=== PATIENT | male | born 1975 ===

== ENCOUNTER 2017-01-27 15:30 | Emergency (ER) | payer MEDICAID ==
[2017-01-27 15:41] VITALS: BMI 25.8
--- NOTE | 2017-01-27 16:20 | ED PDOC ---
Arrival/HPI - General Historian: Patient, Spouse <Rick Chong - Last Filed: 01/27/17 17:56> <Quinton Lambert - Last Filed: 01/28/17 10:27> - General Chief Complaint: Seizure Time Seen by Provider: 01/27/17 15:32 - History of Present Illness Narrative History of Present Illness (Text): 01/27/17 16:13 This is a 41 year old transgendered male with PMHx seizure disorder, bipolar disorder, schizoaffective disorder, gender identity disorder, BPH, asthma who comes in after a seizure episode. Seizure took place in [facility] and witnessed by a nurse who stated that the patient hit his head against the wall. Patient denies recollection of event. Patient is complaining of headache and dizziness. Patient's at bedside stated that the patient has been stressed and experiencing poor sleep as of Tuesday of last week. This was after finding out that the was . Patient denies other acute complaints. PMHx: seizure disorder, bipolar disorder, schizoaffective disorder, gender identity disorder, BPH, asthma PSHx: Appendectomy Allergies: NKDA Social: Denies tobacco, alcohol, drugs. PMD: Dr. Meng Neurologist: Not currently following one at the moment, but last [place] with [place]. [place] [facility]. (Rick Chong) Past Medical History - Provider Review Nursing Documentation Reviewed: Yes - Infectious Disease Hx of Infectious Diseases: None - Tetanus Immunization Tetanus Immunization: Unknown - Reproductive Currently : No Currently Lactating: No - Cardiac Hx Cardiac Disorders: Yes Hx Hypertension: Yes - Pulmonary Hx Respiratory Disorders: Yes Hx Asthma: Yes - Neurological Hx Neurological Disorder: Yes Hx Migraine: Yes Hx Seizures: Yes - HEENT Hx HEENT Disorder: No - Renal Hx Renal Disorder: No - Endocrine/Metabolic Hx Endocrine Disorders: No - Hematological/Oncological Hx Blood Disorders: No - Integumentary Hx Dermatological Disorder: No - Musculoskeletal/Rheumatological Hx Musculoskeletal Disorders: Yes Hx Falls: Yes - Gastrointestinal Hx Gastrointestinal Disorders: No - Genitourinary/Gynecological Hx Genitourinary Disorders: Yes Hx Prostate Problems: Yes Other/Comment: BPH. - Psychiatric Hx Psychophysiologic Disorder: Yes (MULTIDRUG OD,INSOMNIA,BIPOLAR AFFECTIVE D/O, GENDER ID.DISORDER.) Hx Substance Use: No - Past Surgical History Past Surgical History: No Previous - Surgical History Hx Appendectomy: Yes Other/Comment: hernia - Anesthesia Hx Anesthesia: Yes Hx Anesthesia Reactions: No Hx Malignant Hyperthermia: No - Suicidal Assessment Feels Threatened In Home Enviroment: No <Rick Chong - Last Filed: 01/27/17 17:56> Family/Social History - Physician Review Nursing Documentation Reviewed: Yes Family/Social History: Unknown Family HX Smoking Status: Never Smoked Hx Alcohol Use: No Hx Substance Use: No Hx Substance Use Treatment: No <Rick Chong - Last Filed: 01/27/17 17:56> Allergies/Home Meds <Rick Chong - Last Filed: 01/27/17 17:56> <Quinton Lambert - Last Filed: 01/28/17 10:27> Allergies/Adverse Reactions: Allergies No Known Allergies Allergy (Verified 01/27/17 15:44) Home Medications: Home Meds Medication Instructions Recorded Confirmed Albuterol HFA [Ventolin HFA 90 1 puff IH PRN PRN 12/25/15 01/27/17 mcg/actuation (8 g)] Atorvastatin [Lipitor] 40 mg PO DAILY 12/25/15 01/27/17 Lamotrigine [Lamictal] 200 mg PO DAILY 12/25/15 01/27/17 Simvastatin [Zocor] 40 mg PO DAILY 12/25/15 01/27/17 Zolpidem 10 mg PO HS 12/25/15 01/27/17 Alprazolam [Xanax] 0.5 mg PO DAILY 01/27/17 01/27/17 Aspirin [Ecotrin] 81 mg PO DAILY 01/27/17 01/27/17 Benztropine [Cogentin] 0.5 mg PO BID 01/27/17 01/27/17 Lurasidone HCl [Latuda] 80 mg PO DAILY 01/27/17 01/27/17 Risperidone [Risperdal] 1 mg PO HS 01/27/17 01/27/17 clonazePAM [Klonopin] 1 mg PO PRN PRN 01/27/17 01/27/17 hydrOXYzine Pamoate [Vistaril] 50 mg PO TID 01/27/17 01/27/17 Review of Systems - Review of Systems Constitutional: Normal Eyes: Normal ENT: Normal Respiratory: Normal Cardiovascular: Normal Gastrointestinal: Normal Genitourinary Male: Normal Musculoskeletal: Normal Skin: Normal Neurological: Headache, Dizziness Endocrine: Normal Hemo/Lymphatic: Normal Psychiatric: Normal <Rick Chong - Last Filed: 01/27/17 17:56> - Review of Systems Respiratory: absent: SOB Cardiovascular: absent: Chest Pain <Quinton Lambert - Last Filed: 01/28/17 10:27> Physical Exam Vital Signs Reviewed: Yes Temperature: Afebrile Blood Pressure: Normal Pulse: Regular Respiratory Rate: Normal Appearance: Positive for: Comfortable Pain Distress: None Mental Status: Positive for: Alert and Oriented X 3 - Systems Exam Head: Present: Normocephalic Pupils: Present: PERRL Extroacular Muscles: Present: EOMI Conjunctiva: Present: Normal Mouth: Present: Moist Mucous Membranes Neck: Present: Normal Range of Motion Respiratory/Chest: Present: Clear to Auscultation, Good Air Exchange. No: Accessory Muscle Use Cardiovascular: Present: Regular Rate and Rhythm, Normal S1, S2 Abdomen: Present: Normal Bowel Sounds. No: Tenderness, Distention Upper Extremity: Present: Normal Inspection, NORMAL PULSES. No: Edema Lower Extremity: Present: Normal Inspection, NORMAL PULSES. No: Edema, CALF TENDERNESS Neurological: Present: GCS=15, CN II-XII Intact, Motor Func Grossly Intact, Normal Sensory Function, Other (Abnormal finger to nose test. No pronator drift. Down-going plantar responses.) Skin: Present: Warm, Dry, Normal Color Psychiatric: Present: Alert, Oriented x 3. No: Normal Affect (Flat affect) <Rick Chong - Last Filed: 01/27/17 17:56> Medical Decision Making <Rick Chong - Last Filed: 01/27/17 17:56> <Quinton Lambert - Last Filed: 01/28/17 10:27> ED Course and Treatment: 01/27/17 16:25 EKG, CBC, CMP, Coags, UA, UDS, Head CT w.o. contrast, serum alcohol level EKG showed NSR with a prolonged QTc of [address] unremarkable Fioricet given for headache. Patient stable for discharge home. (Rick Chong) 01/27/17 In agreement with resident note, which includes further HPI details. Patient was seen and evaluated with resident, came up with plan and treatment together. pt with known seizure d/o. no seizure activity in er. labs head ct unremarkable. mild leukocytisis. cxr, urine neg. pt neuro intac.t stable for outpt management. 01/28/17 10:27 (Quinton Lambert) - Lab Interpretations Lab Results: 01/27/17 16:05 01/27/17 16:05 Lab Results 01/27/17 16:31: Urine Opiates Screen Negative, Urine Methadone Screen Negative, Ur Barbiturates Screen Positive H, Ur Phencyclidine Scrn Negative, Ur Amphetamines Screen Negative, U Benzodiazepines Scrn Negative, U Oth Cocaine Metabols Negative, U Cannabinoids Screen Positive H 01/27/17 16:31: Urine Color Yellow, Urine Appearance Sl cloudy, Urine pH 6.0, Ur Specific [place] >= 1.030, Urine Protein 30 H, Urine Glucose (UA) Negative, Urine Ketones 40 H, Urine Blood Trace-intact H, Urine Nitrate Negative, Urine Bilirubin Negative, Urine Urobilinogen 0.2, Ur Leukocyte Esterase Negative, Urine RBC 0 - 2, Urine WBC 0 - 2, Ur Epithelial Cells 1 - 3, Urine Other Mucus 01/27/17 16:05: PT 11.8, INR 1.09 H, APTT 24.0 01/27/17 16:05: Alcohol, Quantitative < 10 01/27/17 16:05: Sodium 137, Potassium 4.2, Chloride 98, Carbon Dioxide 25, Anion Gap 18, BUN 6 L, Creatinine 0.6, Est GFR ( Amer) > 60, Est GFR (Non -Af Amer) > 60, Random Glucose 105, Calcium 9.8, Total Bilirubin 0.7, AST 30, ALT 22, Alkaline Phosphatase 66, Total Protein 8.0, Albumin 4.9 H, Globulin 3.1 , Albumin/Globulin Ratio 1.6 01/27/17 16:05: WBC 12.2 H, RBC 4.44, Hgb 12.9 L, Hct 37.4 L, MCV 84.2, MCH 29.1 , MCHC 34.5, RDW 14.0, Plt Count 262, MPV 9.6, Gran % 85.7 H, Lymph % (Auto) 8.0 L, [place] % (Auto) 6.0, Eos % (Auto) 0.2 L, Baso % (Auto) 0.1, Gran # 10.49 H , Lymph # 1.0 L, [place] # 0.7 H, Eos # 0.0, Baso # 0.01 - RAD Interpretation Radiology Orders: 01/27/17 HEAD W/O CONTRAST [CT] Stat 01/27/17 16:42 CXR [CHEST PORTABLE] [RAD] Stat - Medication Orders Current Medication Orders: Discontinued Medications Acetaminophen/Butalbital/Caffeine (Fioricet) 1 tab PO STAT STA Stop: 01/27/17 17:50 Last Admin: 01/27/17 17:59 Dose: 1 tab <Rick Chong - Last Filed: 01/27/17 17:56> - PA / UTILIZATION REVIEW SPECIALIST / Resident Statement MD/ has reviewed & agrees with the documentation as recorded. MD/ has examined the patient and agrees with the treatment plan. - Scribe Statement The provider has reviewed the documentation as recorded by the Scribe <Quinton Lambert - Last Filed: 01/28/17 10:27> - Scribe Statement 01/27/2017 Sonia Desai Provider Scribe Attestation: All medical record entries made by the Scribe were at my direction and personally dictated by me. I have reviewed the chart and agree that the record accurately reflects my personal performance of the history, physical exam, medical decision making, and the department course for this patient. I have also personally directed, reviewed, and agree with the discharge instructions and disposition. (Quinton Lambert) Disposition/Present on Arrival - Present on Arrival Any Indicators Present on Arrival: No History of DVT/PE: No History of Uncontrolled Diabetes: No Urinary Catheter: No History of Decub. Ulcer: No History Surgical Site Infection Following: None - Disposition Have Diagnosis and Disposition been Completed?: Yes Disposition Time: 17:45 Patient Plan: Discharge <Rick Chong - Last Filed: 01/27/17 17:56> <Quinton Lambert - Last Filed: 01/28/17 10:27> - Disposition Diagnosis: Seizures Disposition: HOME/ ROUTINE Condition: STABLE Discharge Instructions (ExitCare): Recurrent Seizures in Adults (ED) Additional Instructions: please follow up with your doctor. return to er with worsening symptoms or concerns. Referrals: [facility] [Outside] - Follow up with primary Karen Meng MD [Primary Care Provider] - Follow up with primary Haim Dalton MD [Staff Provider] - Follow up with primary Forms: [employer] ([place])
--- NOTE | 2017-01-27 16:40 | CT ---
PROCEDURE: CT HEAD WITHOUT CONTRAST. HISTORY: seizure/trauma COMPARISON: 01/21/2016 TECHNIQUE: Axial computed tomography images were obtained through the head/brain without intravenous contrast. Radiation dose: Total exam DLP = 774 mGy-cm. This CT exam was performed using one or more of the following dose reduction techniques: Automated exposure control, adjustment of the mA and/or kV according to patient size, and/or use of iterative reconstruction technique. FINDINGS: HEMORRHAGE: No intracranial hemorrhage. BRAIN: No mass effect or edema. No atrophy or chronic microvascular ischemic changes. VENTRICLES: Unremarkable. No hydrocephalus. CALVARIUM: Unremarkable. PARANASAL SINUSES: Unremarkable as visualized. No significant inflammatory changes. MASTOID AIR CELLS: Unremarkable as visualized. No inflammatory changes. OTHER FINDINGS: None. IMPRESSION: No acute findings
[2017-01-27 16:41] LABS: URINE BILIRUBIN NEGATIVE (NEGATIVE); URINE BLOOD TRACE-INTACT (NEGATIVE); URINE GLUCOSE (UA) NEGATIVE (NEGATIVE); URINE KETONE 40 mg/dL (NEGATIVE); URINE LEUKOCYTE ESTERASE NEGATIVE Leu/uL (NEGATIVE); URINE PROTEIN 30 mg/dL (<30 mg/dL); URINE UROBILINOGEN 0.2 E.U./dL (<1 E.U./dL)
[2017-01-27 16:41] LABS: BASO # 0.01 K/mm3 (0.0-2.0); BASO % 0.1 % (0.0-3.0); EOS % 0.2 % (1.5-5.0); GRAN # 10.49 (1.4-6.5); GRAN % 85.7 % (50.0-68.0); HEMATOCRIT 37.4 % (42.0-52.0); MEAN CELL VOLUME 84.2 fl (80.0-105.0); MEAN CORPUSCULAR HEMOGLOBIN 29.1 pg (25.0-35.0); MEAN CORPUSCULAR HGB CONC 34.5 g/dl (31.0-37.0); MEAN PLATELET VOLUME 9.6 fl (7.0-11.0); MONO # 0.7 (0.1-0.6); WHITE BLOOD COUNT 12.2 10^3/ul (4.5-11.0)
[2017-01-27 16:43] LABS: URINE APPEARANCE SL CLOUDY (CLEAR); URINE COLOR YELLOW (YELLOW)
[2017-01-27 16:49] LABS: URINE RBC 0 - 2 /hpf (0-2); URINE WBC 0 - 2 /hpf (0-6)
[2017-01-27 16:52] LABS: INR 1.09 (0.93-1.08)
[2017-01-27 16:58] VITALS: PULSE 71; RESP 16; TEMP 98.6; O2SAT 97
[2017-01-27 17:23] LABS: ALB/GLOB RATIO 1.6 (1.1-1.8); ALKALINE PHOSPHATASE 66 U/L (38-126); ALT/SGPT 22 U/L (7-56); AST/SGOT 30 U/L (17-59); BILIRUBIN,TOTAL 0.7 mg/dL (0.2-1.3); BLOOD UREA NITROGEN 6 mg/dL (7-21); CALCIUM 9.8 mg/dL (8.4-10.5); CARBON DIOXIDE 25 mmol/L (21-33); CHLORIDE 98 mmol/L (95-110); GFR AFRICAN-AMERICAN > 60; GLUCOSE,RANDOM 105 mg/dL (70-110); POTASSIUM 4.2 mmol/L (3.6-5.0); SODIUM 137 mmol/L (132-148)
--- NOTE | 2017-01-27 17:46 | CARD ---
APPROVED REPORT EKG Measurement Heart [id number] <Conclusion> Normal sinus rhythm Prolonged QT Abnormal ECG
[2017-01-27] MEDS ORDERED: Apap-Butalbital-Caffeine 325-50-40mg Tab PO STA (17:49)
--- NOTE | 2017-01-27 18:01 | RAD ---
HISTORY: seizure COMPARISON: Chest x-ray performed 12/25/15 TECHNIQUE: Chest, one view. FINDINGS: LUNGS: No focal consolidation. Please note that chest x-ray has limited sensitivity for the detection of pulmonary masses. PLEURA: No significant pleural effusion identified. No definite pneumothorax . CARDIOVASCULAR: The cardiomediastinal silhouette appears within normal limits of size. OSSEOUS STRUCTURES: No acute osseous abnormality identified. VISUALIZED UPPER ABDOMEN: Unremarkable. OTHER FINDINGS: None. IMPRESSION: No focal consolidation, significant pleural effusion, or definite pneumothorax identified.
[2017-01-27 18:03] VITALS: BP 117/67
== END 2017-01-27 18:09 | disposition home or self-care (01) ==
LOC: ED 15:30
DX: G40.909 Epilepsy, unspecified, not intractable, without status epilepticus (principal); I10 Essential (primary) hypertension; N40.0 Benign prostatic hyperplasia without lower urinary tract symptoms; F25.9 Schizoaffective disorder, unspecified

== ENCOUNTER 2017-03-17 22:27 | Inpatient (IN) | payer MEDICAID ==
--- NOTE | 2017-03-17 22:50 | ED PDOC ---
Arrival/HPI - General Time Seen by Provider: 03/17/17 22:34 Historian: EMS - Critical Care Critical Care Minutes: 30 minutes - History of Present Illness Narrative History of Present Illness (Text): 03/17/17 22:35 Arnaud Jeffrey is a 41 year old male who identifies as female, whose past medical history includes seizure disorder, bipolar disorder, schizoaffective disorder, gender identity disorder, BPH, and asthma, who presents to the emergency department with questionable overdose as per EMS. EMS reports that patient was found with multiple empty pill bottles on bedside table such as Ambien, klonopin and xanax. See medication list for full medications. On arrival, Patient is arousable to sternal rub. Additional history unavailable. 03/18/17 00:27 Time/Duration: Prior to Arrival Modifying Factors (Text): none Context: Home Associated Symptoms (Text): none Past Medical History - Provider Review Nursing Documentation Reviewed: Yes - Infectious Disease Hx of Infectious Diseases: None - Tetanus Immunization Tetanus Immunization: Unknown - Reproductive Currently : No Currently Lactating: No - Cardiac Hx Cardiac Disorders: Yes Hx Hypertension: Yes - Pulmonary Hx Respiratory Disorders: Yes Hx Asthma: Yes - Neurological Hx Neurological Disorder: Yes Hx Migraine: Yes Hx Seizures: Yes - HEENT Hx HEENT Disorder: No - Renal Hx Renal Disorder: No - Endocrine/Metabolic Hx Endocrine Disorders: No - Hematological/Oncological Hx Blood Disorders: No - Integumentary Hx Dermatological Disorder: No - Musculoskeletal/Rheumatological Hx Musculoskeletal Disorders: Yes Hx Falls: Yes - Gastrointestinal Hx Gastrointestinal Disorders: No - Genitourinary/Gynecological Hx Genitourinary Disorders: Yes Hx Prostate Problems: Yes Other/Comment: BPH. - Psychiatric Hx Psychophysiologic Disorder: Yes (MULTIDRUG OD,INSOMNIA,BIPOLAR AFFECTIVE D/O, GENDER ID.DISORDER.) Hx Substance Use: No - Past Surgical History Past Surgical History: No Previous - Surgical History Hx Appendectomy: Yes Other/Comment: hernia - Anesthesia Hx Anesthesia: Yes Hx Anesthesia Reactions: No Hx Malignant Hyperthermia: No - Suicidal Assessment Feels Threatened In Home Enviroment: No Family/Social History - Physician Review Nursing Documentation Reviewed: Yes Family/Social History: No Known Family HX Smoking Status: Never Smoked Hx Alcohol Use: No Hx Substance Use: No Hx Substance Use Treatment: No Allergies/Home Meds Allergies/Adverse Reactions: Allergies No Known Allergies Allergy (Unverified 03/17/17 23:11) Home Medications: Home Meds Medication Instructions Recorded Confirmed Albuterol HFA [Ventolin HFA 90 1 puff IH PRN PRN 12/25/15 01/27/17 mcg/actuation (8 g)] Atorvastatin [Lipitor] 40 mg PO DAILY 12/25/15 01/27/17 Lamotrigine [Lamictal] 200 mg PO DAILY 12/25/15 01/27/17 Simvastatin [Zocor] 40 mg PO DAILY 12/25/15 01/27/17 Zolpidem 10 mg PO HS 12/25/15 01/27/17 Alprazolam [Xanax] 0.5 mg PO DAILY 01/27/17 01/27/17 Aspirin [Ecotrin] 81 mg PO DAILY 01/27/17 01/27/17 Benztropine [Cogentin] 0.5 mg PO BID 01/27/17 01/27/17 Lurasidone HCl [Latuda] 80 mg PO DAILY 01/27/17 01/27/17 Risperidone [Risperdal] 1 mg PO HS 01/27/17 01/27/17 clonazePAM [Klonopin] 1 mg PO PRN PRN 01/27/17 01/27/17 hydrOXYzine Pamoate [Vistaril] 50 mg PO TID 01/27/17 01/27/17 Review of Systems - Review of Systems Systems not reviewed;Unavailable: Acuity of Condition Physical Exam Vital Signs Temp Pulse Resp BP Pulse Ox 03/18/17 01:41 95.8 F L 03/18/17 01:33 95.8 F L 03/18/17 01:11 59 L 16 96/56 L 100 03/18/17 00:39 94.2 F L 03/18/17 00:15 58 L 12 103/59 L 99 03/17/17 23:30 57 L 12 94/59 L 99 03/17/17 22:32 62 16 127/82 97 03/17/17 22:27 88 30 H 246/110 H 100 Temperature: Hypothermic (temp:94, pramod hugger applied) Blood Pressure: Normal Pulse: Tachycardic Respiratory Rate: Tachypneic Appearance: Positive for: Unkept, Other (Disheveled; no trauma, skin moist, no flushing) Pain Distress: None - Systems Exam Head: Present: Atraumatic, Normocephalic Pupils: Present: Other (Midpoint pupils reactive) Respiratory/Chest: Present: Clear to Auscultation, Good Air Exchange. No: Respiratory Distress, Accessory Muscle Use Cardiovascular: Present: Regular Rate and Rhythm, Normal S1, S2. No: Murmurs Abdomen: Present: Normal Bowel Sounds. No: Tenderness, Distention, Peritoneal Signs Upper Extremity: Present: Normal ROM Lower Extremity: Present: Normal ROM Skin: Present: Warm, Dry, Normal Color. No: Rashes Medical Decision Making ED Course and Treatment: 03/17/17 22:52 Impression: 41 year old male presents with questionable overdose as per EMS. Differential Diagnosis included but are not limited to: Plan: -- EKG -- Chest X-ray -- Head CT w/o contrast -- Urinalysis -- Labs -- ivf -- Reassess and disposition Prior Visits: Notes and results from previous visits were reviewed. Patient last seen in the ED on 01/27/17 after a seizure episode that took place in [facility]. Patient was discharged home. Progress Notes: 03/17/17 23:12 EKG shows NSR at 62bpm with normal intervals and no st changes. Qtc:458 03/18/17 00:28 Labs reviewed and K repleted. Narcan given with no response. Spoke to poison control who recommend monitoring for gizzard puller depression and anticholinergic symptoms. Patient continues to rest comfortably and protect airway. Will need psych after med clearance. 03/18/17 02:29 CT Head Without Intravenous Contrast: Dictated and Authenticated by: Karen Graves MD FINDINGS: Brain: No acute intracranial hemorrhage. No significant white matter disease. No edema. Ventricles: No significant ventriculomegaly. Bones: No acute displaced fracture. Sinuses: Unremarkable as visualized. No acute sinusitis. Mastoid air cells: Unremarkable as visualized. No mastoid effusion. IMPRESSION: No acute intracranial hemorrhage, or suspicious mass effect. 03/18/17 03:07 03/18/17 03:13 03/18/17 03:15 - Lab Interpretations Lab Results: 03/17/17 23:30 03/17/17 23:30 Lab Results 03/18/17 00:05: Urine Opiates Screen Negative, Urine Methadone Screen Negative, Ur Barbiturates Screen Positive H, Ur Phencyclidine Scrn Negative, Ur Amphetamines Screen Negative, U Benzodiazepines Scrn Positive H, U Oth Cocaine Metabols Negative, U Cannabinoids Screen Positive H 03/18/17 00:05: Urine Color Yellow, Urine Appearance Clear, Urine pH 6.0, Ur Specific [place] 1.015, Urine Protein Negative, Urine Glucose (UA) Negative, Urine Ketones Trace H, Urine Blood Negative, Urine Nitrate Negative, Urine Bilirubin Negative, Urine Urobilinogen 0.2, Ur Leukocyte Esterase Negative 03/17/17 23:55: pO2 152 H, VBG pH 7.34, VBG pCO2 51.0, VBG HCO3 27.5, VBG Total CO2 29.1 H, VBG O2 Sat (Calc) 99.6 H, VBG Base Excess 0.9, VBG Potassium 3.1 L, Glucose 92, Lactate 0.7, FiO2 21.0, Sodium 141.0, Chloride 112.0 H, Venous Blood Potassium 3.1 L 03/17/17 23:30: WBC 8.3 D, RBC 4.04, Hgb 12.0 L, Hct 35.5 L, MCV 87.9 D, MCH 29.7, MCHC 33.8, RDW 14.2, Plt Count 200, MPV 9.6, Gran % 77.7 H, Lymph % (Auto ) 13.3 L, [place] % (Auto) 7.3 H, Eos % (Auto) 1.6, Baso % (Auto) 0.1, Gran # 6.46 , Lymph # 1.1 L, [place] # 0.6, Eos # 0.1, Baso # 0.01 03/17/17 23:30: Alcohol, Quantitative < 10 03/17/17 23:30: Salicylates < 1 L, Acetaminophen < 10.0 L 03/17/17 23:30: Sodium 141, Potassium 3.3 L, Chloride 107, Carbon Dioxide 29, Anion Gap 8 L, BUN 9, Creatinine 0.6 L, Est GFR ( Amer) > 60, Est GFR ( Non-Af Amer) > 60, Random Glucose 99, Calcium 8.7, Phosphorus 4.0, Magnesium 1.7 , Total Bilirubin 0.3, AST 40, ALT 31, Alkaline Phosphatase 51, Lactate Dehydrogenase 427, Total Creatine Kinase 540 H, CK-MB (CK-2) 3.3, CK-MB (CK-2) % Cancelled, Troponin I < 0.01, Total Protein 6.1, Albumin 3.7, Globulin 2.4, Albumin/Globulin Ratio 1.5 03/17/17 23:30: PT 11.4, INR 1.04, APTT 29.1 I have reviewed the lab results: Yes - RAD Interpretation Radiology Orders: 03/17/17 22:34 HEAD W/O CONTRAST [CT] Stat CHEST PORTABLE [RAD] Stat - Medication Orders Current Medication Orders: Sodium Chloride (Sodium Chloride 0.9%) 1,000 mls @ 150 mls/hr IV .Q6H40M JOSEPHINE Last Admin: 03/18/17 02:15 Dose: 150 mls/hr eMAR Start Stop Document 03/18/17 02:15 JBO (Rec: 03/18/17 02:15 [facility] [id number]) Intravenous Solution Start Date 03/18/17 Start Time 02:15 Potassium Chloride (Potassium Chloride 20 Meq/100 Ml) 20 meq in 100 mls @ 50 mls/hr IVPB ONCE ONE Stop: 03/18/17 03:46 Last Admin: 03/18/17 02:11 Dose: 50 mls/hr eMAR Start Stop Document 03/18/17 02:11 JBO (Rec: 03/18/17 02:12 [facility] [id number]) Intravenous Solution Start Date 03/18/17 Start Time 02:15 End Date 03/18/17 End time 04:15 Total Infusion Time 120 Pantoprazole Sodium (Protonix Inj) 40 mg IVP DAILY JOSEPHINE Discontinued Medications Sodium Chloride (Sodium Chloride 0.9%) 1,000 mls @ 999 mls/hr IV .Q1H1M STA Stop: 03/18/17 00:13 Last Admin: 03/17/17 23:32 Dose: 999 mls/hr eMAR Start Stop Document 03/17/17 23:32 SC (Rec: 03/17/17 23:33 SC [id number]) Intravenous Solution Start Date 03/17/17 Start Time 23:32 End Date 03/18/17 End time 00:33 Total Infusion Time 61 Sodium Chloride (Sodium Chloride 0.9%) 1,000 mls @ 999 mls/hr IV .Q1H1M STA Stop: 03/18/17 02:31 Last Admin: 03/18/17 02:18 Dose: 999 mls/hr eMAR Start Stop Document 03/18/17 02:18 JBO (Rec: 03/18/17 02:18 JBO [id number]) Intravenous Solution Start Date 03/18/17 Start Time 02:20 End Date 03/18/17 End time 03:20 Total Infusion Time 60 Naloxone HCl (Narcan) 0.4 mg IVP STAT STA Stop: 03/18/17 00:26 Last Admin: 03/18/17 00:30 Dose: 0.4 mg IVP Administration Document 03/18/17 00:30 YOSSI (Rec: 03/18/17 00:30 [id number] Charges for Administration # of IVP Administrations 1 Potassium Chloride (K-Dur 20 Meq Er Tab) 40 meq PO STAT STA Stop: 03/18/17 00:39 Last Admin: 03/18/17 01:28 Dose: Not Given Non-Admin Reason: NPO - Scribe Statement The provider has reviewed the documentation as recorded by the Royce Galvin Provider Scribe Attestation: All medical record entries made by the Angelaibsterling were at my direction and personally dictated by me. I have reviewed the chart and agree that the record accurately reflects my personal performance of the history, physical exam, medical decision making, and the department course for this patient. I have also personally directed, reviewed, and agree with the discharge instructions and disposition. Disposition/Present on Arrival - Present on Arrival Any Indicators Present on Arrival: No History of DVT/PE: No History of Uncontrolled Diabetes: No Urinary Catheter: No History Surgical Site Infection Following: None - Disposition Have Diagnosis and Disposition been Completed?: Yes Diagnosis: Altered mental status Disposition: HOSPITALIZED Disposition Time: 00:29 Patient Plan: Admission Patient Problems: Current Active Problems Problem Status Onset Altered mental status Acute Condition: CRITICAL
[2017-03-17] MEDS ORDERED: Sodium Chloride 0.9% 1,000 ML IV STA (23:13)
[2017-03-17 23:55] LABS: BASO # 0.01 K/mm3 (0.0-2.0); BASO % 0.1 % (0.0-3.0); EOS # 0.1 (0.0-0.7); EOS % 1.6 % (1.5-5.0); GRAN # 6.46 (1.4-6.5); GRAN % 77.7 % (50.0-68.0); HEMATOCRIT 35.5 % (42.0-52.0); LYMPH # 1.1 (1.2-3.4); LYMPH % 13.3 % (22.0-35.0); MEAN CELL VOLUME 87.9 fl (80.0-105.0); MEAN CORPUSCULAR HEMOGLOBIN 29.7 pg (25.0-35.0); MEAN CORPUSCULAR HGB CONC 33.8 g/dl (31.0-37.0); MEAN PLATELET VOLUME 9.6 fl (7.0-11.0); MONO # 0.6 (0.1-0.6); MONO % 7.3 % (1.0-6.0); RED CELL DISTRIBUTION WIDTH 14.2 % (11.5-14.5); WHITE BLOOD COUNT 8.3 10^3/ul (4.5-11.0)
[2017-03-18 00:07] LABS: INR 1.04 (0.93-1.08); PARTIAL THROMBOPLASTIN TIME 29.1 Seconds (25.1-36.5)
[2017-03-18 00:07] LABS: VENOUS BLOOD GAS BASE EXCESS 0.9 mmol/L (0.0-2.0); VENOUS BLOOD PH 7.34 (7.32-7.43)
[2017-03-18 00:10] LABS: ALB/GLOB RATIO 1.5 (1.1-1.8); ALKALINE PHOSPHATASE 51 U/L (38-126); ALT/SGPT 31 U/L (7-56); AST/SGOT 40 U/L (17-59); BILIRUBIN,TOTAL 0.3 mg/dL (0.2-1.3); BLOOD UREA NITROGEN 9 mg/dL (7-21); CALCIUM 8.7 mg/dL (8.4-10.5); CARBON DIOXIDE 29 mmol/L (21-33); CHLORIDE 107 mmol/L (98-107); GFR AFRICAN-AMERICAN > 60; GLUCOSE,RANDOM 99 mg/dL (70-110); MAGNESIUM 1.7 mg/dL (1.7-2.2); POTASSIUM 3.3 mmol/L (3.6-5.0); SODIUM 141 mmol/L (132-148); TOTAL PROTEIN 6.1 g/dL (5.8-8.3)
[2017-03-18 00:18] LABS: URINE BILIRUBIN NEGATIVE (NEGATIVE); URINE BLOOD NEGATIVE (NEGATIVE); URINE GLUCOSE (UA) NEGATIVE (NEGATIVE); URINE KETONE TRACE mg/dL (NEGATIVE); URINE LEUKOCYTE ESTERASE NEGATIVE Leu/uL (NEGATIVE); URINE PROTEIN NEGATIVE mg/dL (<30 mg/dL); URINE UROBILINOGEN 0.2 E.U./dL (<1 E.U./dL)
[2017-03-18 00:20] LABS: URINE APPEARANCE CLEAR (CLEAR); URINE COLOR YELLOW (YELLOW)
[2017-03-18 00:22] LABS: TROPONIN I < 0.01 ng/mL
[2017-03-18] MEDS ORDERED: Naloxone 0.4 mg/ml Inj (Adult) IVP STA (00:25)
[2017-03-18] MEDS ORDERED: Potassium Chloride 20 mEq ER Tab PO STA (00:38)
[2017-03-18 00:50] LABS: ARTERIAL BLOOD GAS HCO3 27.8 mmol/L (21-28); ARTERIAL BLOOD GAS O2 CAPACITY 16.4 mL/dl (16-24); ARTERIAL BLOOD GAS O2 CONTENT 16.4 ML/dl (15-23); ARTERIAL BLOOD GAS PH 7.32 (7.35-7.45); ARTERIAL BLOOD HGB O2 SAT 95.8 % (95.0-98.0); CARBOXYHEMOGLOBIN 3.1 % (0.5-1.5); HHB -0.1 % (0-5); METHEMOGLOBIN 1.1 % (0.0-3.0)
[2017-03-18] MEDS ORDERED: Sodium Chloride 0.9% 1,000 ML IV STA (01:31)
[2017-03-18] MEDS: Sodium Chloride 0.9% 1,000 ML IV SCH ×3 (02:15→20:31)
--- NOTE | 2017-03-18 02:28 | CT ---
EXAM: CT Head Without Intravenous Contrast CLINICAL HISTORY: 41 years old, male; Signs and symptoms; Altered mental status/memory loss TECHNIQUE: Axial computed tomography images of the head/brain without intravenous contrast. All CT scans at this facility use one or more dose reduction techniques, viz.: automated exposure control; ma/kV adjustment per patient size (including targeted exams where dose is matched to indication; i.e. head); or iterative reconstruction technique. COMPARISON: 01/27/2017 FINDINGS: Brain: No acute intracranial hemorrhage. No significant white matter disease. No edema. Ventricles: No significant ventriculomegaly. Bones: No acute displaced fracture. Sinuses: Unremarkable as visualized. No acute sinusitis. Mastoid air cells: Unremarkable as visualized. No mastoid effusion. IMPRESSION: No acute intracranial hemorrhage, or suspicious mass effect.
--- NOTE | 2017-03-18 03:20 | CP.PCM.HP ---
<Marly Encarnacion - Last Filed: 03/18/17 02:59> History of Present Illness - History of Present Illness History of Present Illness: 40 M with PMHx of HTN, seizures, BPH, asthma, hyperlipidemia, GERD, headaches, bipolar disorder, schizoaffective, and gender identity disorder who presented to the ED with AMS. Pt was brought in by EMS as reported to have taken several medications, and subsequently became obtunded. Pt was found to have certain medication bottles that were brought in with patient that were empty including ambien and baclofen. HPI and ROS are limited due to patient current clinical status. PMHx: seizure, BPH, asthma, GERD, HTN, HLD, bipolar, headaches, schizoaffective , gender identity disorder PSHx: Appendectomy and hernia repair November 2015 Meds: Endocet, Lamictal 200mg qd, Propanolol 20mg, Lipitor 40mg, Singulair 10mg , Albuterol, Baclofen 10mg TID, Omeprazole 40mg, hydroxyzine 50mg, Latuda 80mg, xanax 1mg, iphsgd-bpgmzylipymlv-qwgxwvoz 50-325-40mg FamHx: dad-prostate cancer Allergies: NKDA Present on Admission - Present on Admission Any Indicators Present on Admission: No Review of Systems - Review of Systems Systems not reviewed;Unavailable: Acuity of Condition, Altered Mental Status Past Patient History - Infectious Disease Hx of Infectious Diseases: None - Tetanus Immunizations Tetanus Immunization: Unknown - Past Medical History & Family History Past Medical History?: Yes - Past Social History Smoking Status: Never Smoked - CARDIAC Hx Cardiac Disorders: Yes Hx Hypertension: Yes - PULMONARY Hx Respiratory Disorders: Yes Hx Asthma: Yes - NEUROLOGICAL Hx Neurological Disorder: Yes Hx Migraine: Yes Hx Seizures: Yes - HEENT Hx HEENT Problems: No - RENAL Hx Chronic Kidney Disease: No - ENDOCRINE/METABOLIC Hx Endocrine Disorders: No - HEMATOLOGICAL/ONCOLOGICAL Hx Blood Disorders: No - INTEGUMENTARY Hx Dermatological Problems: No - MUSCULOSKELETAL/RHEUMATOLOGICAL Hx Musculoskeletal Disorders: Yes Hx Falls: Yes - GASTROINTESTINAL Hx Gastrointestinal Disorders: No - GENITOURINARY/GYNECOLOGICAL Hx Genitourinary Disorders: Yes Hx Prostate Problems: Yes Other/Comment: BPH. - PSYCHIATRIC Hx Psychophysiologic Disorder: Yes (MULTIDRUG OD,INSOMNIA,BIPOLAR AFFECTIVE D/O, GENDER ID.DISORDER.) Hx Substance Use: No - SURGICAL HISTORY Hx Appendectomy: Yes Other/Comment: hernia - ANESTHESIA Hx Anesthesia: Yes Hx Anesthesia Reactions: No Hx Malignant Hyperthermia: No Meds Allergies/Adverse Reactions: Allergies Allergy/AdvReac Type Severity Reaction Status Date / Time No Known Allergies Allergy Unverified 03/17/17 23:11 Physical Exam - Constitutional Appears: Confused - Head Exam Head Exam: ATRAUMATIC, NORMAL INSPECTION, NORMOCEPHALIC - Eye Exam Eye Exam: EOMI, Normal appearance, PERRL Pupil Exam: NORMAL ACCOMODATION, PERRL - ENT Exam ENT Exam: Mucous Membranes Moist, Normal Exam - Respiratory Exam Respiratory Exam: Decreased Breath Sounds, Clear to Auscultation Bilateral, NORMAL BREATHING PATTERN - Cardiovascular Exam Cardiovascular Exam: REGULAR RHYTHM, +S1, +S2 - GI/Abdominal Exam GI & Abdominal Exam: Normal Bowel Sounds, Soft - Extremities Exam Extremities exam: Positive for: normal inspection - Neurological Exam Neurological exam: Altered - Skin Skin Exam: Dry, Intact, Normal Color, Warm Results - Vital Signs Recent Vital Signs: Last Vital Signs Temp 95.8 F L 03/18/17 01:41 Pulse 59 L 03/18/17 01:11 Resp 16 03/18/17 01:11 BP 96/56 L 03/18/17 01:11 Pulse Ox 100 03/18/17 01:11 - Labs Result Diagrams: 03/17/17 23:30 03/17/17 23:30 Labs: Laboratory Results - last 24 hr 03/18/17 00:47 pCO2 54 H pO2 255.0 H HCO3 27.8 ABG pH 7.32 L ABG Total CO2 29.5 H ABG O2 Saturation 100.1 H ABG O2 Content 16.4 ABG Base Excess 0.9 ABG Hemoglobin 11.7 ABG Carboxyhemoglobin 3.1 H POC ABG HHb (Measured) -0.1 L ABG Methemoglobin 1.1 ABG O2 Capacity 16.4 Hgb O2 Saturation 95.8 FiO2 32.0 Assessment & Plan - Assessment and Plan (Free Text) Assessment: 41 M with PMHx of HTN, seizures, BPH, asthma, hyperlipidemia, GERD, headaches, bipolar disorder, schizoaffective, and gender identity disorder who presented to the ED with AMS 2/2 polypharmacy admitted to ICU for close monitoring. Neuro: AMS 2/2 polypharmacy, not responding to verbal or tactile stimulus, not following commands poison control contacted, continue supportive care for now hypothermic on pramod hugger, maintain normothermia CTH Negative for intracranial pathology hx seizures, seizure precautions Neurochecks q1h Pulm: stable, maintaining airway maintain 02 sat >90% 02 NC PRN FU ABG CVS: Currently HD stable IVF NS 1L bolus and @ 150cc/hr Trop negative x1, trend FU EKG continue to monitor GI: NPO GI ppx Renal: Stable renal fcn valdovinos in place strict I&Os monitor uop FU UTox Hypokalemia, monitor electrolytes and replete as needed Endo: Maintain bg 140-180 GI DVT ppx Seen reviewed and discussed with attending <Garrett Trevizo Q - Last Filed: 03/18/17 06:24> Results - Vital Signs Recent Vital Signs: Last Vital Signs Temp 97.5 F L 03/18/17 02:22 Pulse 77 03/18/17 04:14 Resp 18 03/18/17 04:14 BP 123/82 03/18/17 04:00 Pulse Ox 98 03/18/17 03:00 - Labs Result Diagrams: 03/17/17 23:30 03/17/17 23:30 Labs: Laboratory Results - last 24 hr 03/18/17 00:47 pCO2 54 H pO2 255.0 H HCO3 27.8 ABG pH 7.32 L ABG Total CO2 29.5 H ABG O2 Saturation 100.1 H ABG O2 Content 16.4 ABG Base Excess 0.9 ABG Hemoglobin 11.7 ABG Carboxyhemoglobin 3.1 H POC ABG HHb (Measured) -0.1 L ABG Methemoglobin 1.1 ABG O2 Capacity 16.4 Hgb O2 Saturation 95.8 FiO2 32.0 Attending/Attestation - Attestation I have personally seen and examined this patient.: Yes I have fully participated in the care of the patient.: Yes I have reviewed all pertinent clinical information: Yes Notes (Text): 03/18/17 06:21 I agree with the above mentioned note and exam by the resident with the addition /exception of the followin41 y/o male with an extensive PMHx as listed above, along with multiple psychiatric illnesses was brought in by EMS after reportedly taking multiple pills. It is unclear wether this was intentional or unintentional self-harm through poly-pharmacy. Patient was obtunded, however able to protect his airway as shown with adequate oxygenation and ventilation on his VBG. Overnight the patient woke up and was moving his extremities spontaneously; monitored in the ICU for closer care. Will obtain psych consult to evaluate for suicidal ideation. Will place on 1:1 observation Case discussed at length with Dr. Palacios in the ED all labs and images available thus far reviewed personally (Head CT negative for any acute changes) total time of care: 45 minutes
[2017-03-18 04:44] VITALS: BMI 22.3
[2017-03-18 07:56] LABS: BASO # 0.01 K/mm3 (0.0-2.0); BASO % 0.1 % (0.0-3.0); EOS # 0.2 (0.0-0.7); EOS % 2.6 % (1.5-5.0); GRAN # 5.74 (1.4-6.5); GRAN % 66.1 % (50.0-68.0); HEMATOCRIT 38.1 % (42.0-52.0); LYMPH # 1.9 (1.2-3.4); MEAN CELL VOLUME 88.6 fl (80.0-105.0); MEAN CORPUSCULAR HEMOGLOBIN 29.1 pg (25.0-35.0); MEAN CORPUSCULAR HGB CONC 32.8 g/dl (31.0-37.0); MEAN PLATELET VOLUME 9.2 fl (7.0-11.0); MONO # 0.8 (0.1-0.6); MONO % 9.2 % (1.0-6.0); RED CELL DISTRIBUTION WIDTH 14.4 % (11.5-14.5); WHITE BLOOD COUNT 8.7 10^3/ul (4.5-11.0)
[2017-03-18 08:06] LABS: ALB/GLOB RATIO 1.5 (1.1-1.8); ALKALINE PHOSPHATASE 55 U/L (38-126); ALT/SGPT 28 U/L (7-56); AST/SGOT 30 U/L (17-59); BILIRUBIN,TOTAL 0.4 mg/dL (0.2-1.3); BLOOD UREA NITROGEN 7 mg/dL (7-21); CALCIUM 8.7 mg/dL (8.4-10.5); CARBON DIOXIDE 28 mmol/L (21-33); CHLORIDE 109 mmol/L (98-107); GFR AFRICAN-AMERICAN > 60; GLUCOSE,RANDOM 95 mg/dL (70-110); MAGNESIUM 1.8 mg/dL (1.7-2.2); PHOSPHOROUS 2.6 mg/dL (2.5-4.5); SODIUM 143 mmol/L (132-148); TOTAL PROTEIN 5.9 g/dL (5.8-8.3)
[2017-03-18 08:20] LABS: TROPONIN I < 0.01 ng/mL
--- NOTE | 2017-03-18 08:47 | RAD ---
HISTORY: altered COMPARISON: 01/27/2017 FINDINGS: LUNGS: New bibasilar infiltrates, likely lower lobe. No silhouetting of heart border. PLEURA: No significant pleural effusion identified, no pneumothorax apparent. CARDIOVASCULAR: Normal. OSSEOUS STRUCTURES: No significant abnormalities. VISUALIZED UPPER ABDOMEN: Normal. OTHER FINDINGS: None. IMPRESSION: New bilateral lower lobe infiltrates. Possible pneumonia.
[2017-03-18] MEDS ORDERED: Magnesium Sulfate 2 GM in Sodium Chloride 0.9% 100 ML IVPB ONE (09:30)
--- NOTE | 2017-03-18 12:49 | CP.CCUPN ---
<Lit Mcdowell - Last Filed: 03/18/17 13:44> CCU Subjective - Physician Review Subjective (Free Text): 03/18/17 12:44 Seen and examined at bedside in the ICU. Awake and conversant, but bizzare affect and poor insight, appears to be baseline as per charting and at bedside. Eating oatmeal without difficulty. Oriented x3 (self, location, year) . Poison control called for re-assessment, signed off. Patient denies chest or abd pain, shortness of breath, nausea/emesis, fevers/chills, room-spinning sensation, dizziness/lightheadedness, focal paresthesias/weakness. CCU Objective - Vital Signs / Intake & Output Vital Signs (Last 4 hours): Vital Signs Pulse Resp BP Pulse Ox 03/18/17 12:00 90 03/18/17 09:01 67 11 L 116/80 100 03/18/17 09:00 65 25 H 100 03/18/17 08:50 56 L 11 L 100 Intake and Output (Last 8hrs): Intake & Output 03/17/17 03/18/17 03/18/17 22:59 06:59 14:59 Intake Total 2100 Output Total 250 Balance 1850 Weight 78.925 kg 78.925 kg Intake: IV 2100 Right Hand 2100 Output: Urine 250 Urethral (Valdovinos) 250 Other: Voiding Method Indwelling Catheter - Physical Exam Head: Positive for: Atraumatic, Normocephalic Pupils: Positive for: PERRL. Negative for: Non-Reactive, Pinpoint, Other Extroacular Muscles: Positive for: EOMI. Negative for: Gaze Palsy, Entrapment Conjunctiva: Positive for: Normal. Negative for: Injected, Icteric Mouth: Positive for: Moist Mucous Membranes, Normal Lips, Normal Tounge. Negative for: Drooling Nose (External): Positive for: Atraumatic. Negative for: Abrasion, Contusion, Laceration Neck: Positive for: Normal Range of Motion. Negative for: JVD, Trachea Midline Respiratory/Chest: Positive for: Clear to Auscultation, Good Air Exchange. Negative for: Respiratory Distress, Accessory Muscle Use, Wheezes, Rales, Rhonchi Cardiovascular: Positive for: Regular Rate and Rhythm, Normal S1, S2. Negative for: Murmurs, Tachycardic, Bradycardic Abdomen: Positive for: Normal Bowel Sounds. Negative for: Tenderness, Distention (soft, not distended/firm/rigid), Peritoneal Signs, Feeding Tubes, Mass/Organomegaly Upper Extremity: Positive for: Normal Inspection, Normal ROM, NORMAL PULSES. Negative for: Cyanosis, Edema, Tenderness, Swelling, Erythema Lower Extremity: Positive for: Normal Inspection, NORMAL PULSES, Normal ROM. Negative for: Edema, CALF TENDERNESS, Cyanosis Neurological: Positive for: GCS=15, CN II-XII Intact, Speech Normal, Motor Func Grossly Intact, Normal Sensory Function Skin: Positive for: Warm, Dry, Normal Color. Negative for: Rashes Psychiatric: Positive for: Alert, Oriented x 3, Normal Insight, Normal Concentration, Normal Affect, Normal Mood. Negative for: Anxious, Agitated - Medications Active Medications: Active Medications Generic Name Dose Route Start Last Admin Trade Name Freq PRN Reason Stop Dose Admin Sodium Chloride 1,000 mls @ 150 mls/hr 03/18/17 01:45 03/18/17 10:32 Sodium Chloride 0.9% IV 150 mls/hr .[id number] JOSEPHINE Administration Pantoprazole Sodium 40 mg 03/18/17 10:00 03/18/17 10:30 Protonix Inj IVP 40 mg DAILY JOSEPHINE Administration - Patient Studies Lab Studies: Lab Studies 03/18/17 03/18/17 03/18/17 Range/Units 08:00 07:50 00:47 WBC 8.7 (4.5-11.0) 10^3/ul RBC 4.30 (3.5-6.1) 10^6/uL Hgb 12.5 L (14.0-18.0) g/dL Hct 38.1 L (42.0-52.0) % MCV 88.6 (80.0-105.0) fl MCH 29.1 (25.0-35.0) pg MCHC 32.8 (31.0-37.0) g/dl RDW 14.4 (11.5-14.5) % Plt Count 188 (120.0-450.0) 10^3/uL MPV 9.2 (7.0-11.0) fl Gran % 66.1 (50.0-68.0) % Lymph % (Auto) 22.0 (22.0-35.0) % Harlan % (Auto) 9.2 H (1.0-6.0) % Eos % (Auto) 2.6 (1.5-5.0) % Baso % (Auto) 0.1 (0.0-3.0) % Gran # 5.74 (1.4-6.5) Lymph # 1.9 (1.2-3.4) Harlan # 0.8 H (0.1-0.6) Eos # 0.2 (0.0-0.7) Baso # 0.01 (0.0-2.0) K/mm3 pCO2 54 H (35-45) mm/Hg pO2 255.0 H (80-100) mm/Hg HCO3 27.8 (21-28) mmol/L ABG pH 7.32 L (7.35-7.45) ABG Total CO2 29.5 H (22-28) mmol.L ABG O2 Saturation 100.1 H (95-98) % ABG O2 Content 16.4 (15-23) ML/dl ABG Base Excess 0.9 (-2.0-3.0) mmol/L ABG Hemoglobin 11.7 (11.7-17.4) g/dL ABG Carboxyhemoglobin 3.1 H (0.5-1.5) % POC ABG HHb (Measured) -0.1 L (0-5) % ABG Methemoglobin 1.1 (0.0-3.0) % ABG O2 Capacity 16.4 (16-24) mL/dl Hgb O2 Saturation 95.8 (95.0-98.0) % FiO2 32.0 % Sodium 143 (132-148) mmol/L Potassium 4.0 (3.6-5.0) mmol/L Chloride 109 H (98-107) mmol/L Carbon Dioxide 28 (21-33) mmol/L Anion Gap 10 (10-20) BUN 7 (7-21) mg/dL Creatinine 0.6 L (0.8-1.5) mg/dL Est GFR ( Amer) > 60 Est GFR (Non-Af Amer) > 60 Random Glucose 95 (70-110) mg/dL Calcium 8.7 (8.4-10.5) mg/dL Phosphorus 2.6 (2.5-4.5) mg/dL Magnesium 1.8 (1.7-2.2) mg/dL Total Bilirubin 0.4 (0.2-1.3) mg/dL AST 30 (17-59) U/L ALT 28 (7-56) U/L Alkaline Phosphatase 55 (38-126) U/L Troponin I < 0.01 ng/mL Total Protein 5.9 (5.8-8.3) g/dL Albumin 3.5 (3.0-4.8) g/dL Globulin 2.4 gm/dL Albumin/Globulin Ratio 1.5 (1.1-1.8) Laboratory Results - last 24 hr 03/18/17 03/18/17 03/18/17 00:47 07:50 08:00 WBC 8.7 RBC 4.30 Hgb 12.5 L Hct 38.1 L MCV 88.6 MCH 29.1 MCHC 32.8 RDW 14.4 Plt Count 188 MPV 9.2 Gran % 66.1 Lymph % (Auto) 22.0 Harlan % (Auto) 9.2 H Eos % (Auto) 2.6 Baso % (Auto) 0.1 Gran # 5.74 Lymph # 1.9 Harlan # 0.8 H Eos # 0.2 Baso # 0.01 pCO2 54 H pO2 255.0 H HCO3 27.8 ABG pH 7.32 L ABG Total CO2 29.5 H ABG O2 Saturation 100.1 H ABG O2 Content 16.4 ABG Base Excess 0.9 ABG Hemoglobin 11.7 ABG Carboxyhemoglobin 3.1 H POC ABG HHb (Measured) -0.1 L ABG Methemoglobin 1.1 ABG O2 Capacity 16.4 Hgb O2 Saturation 95.8 FiO2 32.0 Sodium 143 Potassium 4.0 Chloride 109 H Carbon Dioxide 28 Anion Gap 10 BUN 7 Creatinine 0.6 L Est GFR ( Amer) > 60 Est GFR (Non-Af Amer) > 60 Random Glucose 95 Calcium 8.7 Phosphorus 2.6 Magnesium 1.8 Total Bilirubin 0.4 AST 30 ALT 28 Alkaline Phosphatase 55 Troponin I < 0.01 Total Protein 5.9 Albumin 3.5 Globulin 2.4 Albumin/Globulin Ratio 1.5 EKG/Cardiology Studies: Cardiology / EKG Studies 03/18/17 06:54 EKG [ELECTROCARDIOGRAM] Stat Comment: Reason For Exam: od Review of Systems - Review of Systems All systems: reviewed and no additional remarkable complaints except (as per subjective) Critical Care Progress Note - Nutrition Nutrition: Nutrition Category Date Time Status Regular Diet [DIET] Diets 03/19/17 Breakfast Ordered Assessment/Plan - Assessment and Plan (Free Text) Assessment: This is a 41 M (self identifies as Female) with PMHx of HTN, seizures, BPH, asthma, hyperlipidemia, GERD, headaches, bipolar disorder, schizoaffective, and gender identity disorder who presented to the ED with AMS 2/2 polypharmacy admitted to ICU for close monitoring. She has become less obtunded, and is pending repeat labs and EKG for possible transfer to telemetry. Pending Psych eval to determine if intentional overdose, maintaining 1:1 in the meantime. Plan: Neuro: -AMS 2/2 polypharmacy; appears to have resolved, now arousable, feeding self, conversant, following all commands -poison control signing off -hypothermia resolved, maintain normothermia -CTH Negative for intracranial pathology -hx seizures, seizure precautions -Neurochecks q1h -Will require Psych consult to assess if intentional overdose vs OD 2/2 poor insight Pulm: -stable, maintaining airway, satting well on room air at time of exam -maintain 02 sat >90% -AM ABG reviewed, mild acidosis with CO2 54 and pH 7.32; HCO3 27.8, as per Winter's formula expected CO2 48-52, not fully compensated Cardio: -Currently HD stable, intermittently bradycardic to mid-50's but maintaining appropriate pressures, maintaining MAP > 65 -IVF NS 150cc/hr -Trop negative x2, trend -AM EKG notable for NSR with normal segments, no QRS or QTc abnormalities; repeat EKG pending this afternoon, f/u -continue to monitor GI: -Regular Diet, tolerating well -GI ppx with Protonix -LFTs remain wnl, will repeat check with repeat EKG Renal: -Cr stable at 0.6 -valdovinos in place, clear yellow urine -strict I&Os -UTox notable for Benzos, Barbs, Canabannoids -electrolyes wnl today, will monitor and replete Endo: -Maintain bg 140-180 Heme: -stable hgb, no signs of bleeding -SCDs for dvt ppx ID: -no leukocytosis, afebrile, no indication for abx -hypothermia resolved, off pramod-hugger Psych: -extensive psych hx, bizzare affect, unable to determine if intentional overdose or lacks insight to understand consequences of actions -Psych consulted, defer to psych to determine if intention overdose -maintain 1:1 Dispo: ICU, pending repeat CMP and EKG, pending possible transfer to telemetry FEN: Regular diet, NS 150cc/hr Access: Peripheral IVs Consults: Psych Ppx: Protonix for GI, SCDs for DVT Seen, reviewed, and discussed with attending, Dr. Lopez <Jessica EMMANUEL,[facility] - Last Filed: 03/18/17 15:36> CCU Objective - Vital Signs / Intake & Output Vital Signs (Last 4 hours): Vital Signs Temp Pulse 03/18/17 12:00 98.2 F 90 Intake and Output (Last 8hrs): Intake & Output 03/18/17 03/18/17 03/18/17 06:59 14:59 22:59 Intake Total 2100 Output Total 250 Balance 1850 Weight 174 lb 174 lb Intake: IV 2100 Right Hand 2100 Output: Urine 250 Urethral (Valdovinos) 250 Other: Voiding Method Indwelling Catheter - Medications Active Medications: Active Medications Generic Name Dose Route Start Last Admin Trade Name Freq PRN Reason Stop Dose Admin Sodium Chloride 1,000 mls @ 150 mls/hr 03/18/17 01:45 03/18/17 10:32 Sodium Chloride 0.9% IV 150 mls/hr .Q6H40M JOSEPHINE Administration Pantoprazole Sodium 40 mg 03/18/17 10:00 03/18/17 10:30 Protonix Inj IVP 40 mg DAILY JOSEPHINE Administration - Patient Studies Lab Studies: Lab Studies 03/18/17 03/18/17 03/18/17 Range/Units 14:00 08:00 07:50 WBC 8.7 (4.5-11.0) 10^3/ul RBC 4.30 (3.5-6.1) 10^6/uL Hgb 12.5 L (14.0-18.0) g/dL Hct 38.1 L (42.0-52.0) % MCV 88.6 (80.0-105.0) fl MCH 29.1 (25.0-35.0) pg MCHC 32.8 (31.0-37.0) g/dl RDW 14.4 (11.5-14.5) % Plt Count 188 (120.0-450.0) 10^3/uL MPV 9.2 (7.0-11.0) fl Gran % 66.1 (50.0-68.0) % Lymph % (Auto) 22.0 (22.0-35.0) % Harlan % (Auto) 9.2 H (1.0-6.0) % Eos % (Auto) 2.6 (1.5-5.0) % Baso % (Auto) 0.1 (0.0-3.0) % Gran # 5.74 (1.4-6.5) Lymph # 1.9 (1.2-3.4) Harlan # 0.8 H (0.1-0.6) Eos # 0.2 (0.0-0.7) Baso # 0.01 (0.0-2.0) K/mm3 pCO2 (35-45) mm/Hg pO2 (80-100) mm/Hg HCO3 (21-28) mmol/L ABG pH (7.35-7.45) ABG Total CO2 (22-28) mmol.L ABG O2 Saturation (95-98) % ABG O2 Content (15-23) ML/dl ABG Base Excess (-2.0-3.0) mmol/L ABG Hemoglobin (11.7-17.4) g/dL ABG Carboxyhemoglobin (0.5-1.5) % POC ABG HHb (Measured) (0-5) % ABG Methemoglobin (0.0-3.0) % ABG O2 Capacity (16-24) mL/dl Hgb O2 Saturation (95.0-98.0) % FiO2 % Sodium 143 143 (132-148) mmol/L Potassium 3.8 4.0 (3.6-5.0) mmol/L Chloride 110 H 109 H (98-107) mmol/L Carbon Dioxide 26 28 (21-33) mmol/L Anion Gap 11 10 (10-20) BUN 7 7 (7-21) mg/dL Creatinine 0.6 L 0.6 L (0.8-1.5) mg/dL Est GFR ( Amer) > 60 > 60 Est GFR (Non-Af Amer) > 60 > 60 Random Glucose 91 95 (70-110) mg/dL Calcium 8.7 8.7 (8.4-10.5) mg/dL Phosphorus 2.6 (2.5-4.5) mg/dL Magnesium 1.8 (1.7-2.2) mg/dL Total Bilirubin 0.3 0.4 (0.2-1.3) mg/dL AST 26 30 (17-59) U/L ALT 30 28 (7-56) U/L Alkaline Phosphatase 48 55 (38-126) U/L Troponin I < 0.01 < 0.01 ng/mL Total Protein 5.8 5.9 (5.8-8.3) g/dL Albumin 3.5 3.5 (3.0-4.8) g/dL Globulin 2.4 2.4 gm/dL Albumin/Globulin Ratio 1.5 1.5 (1.1-1.8) 17 Range/Units 00:47 WBC (4.5-11.0) 10^3/ul RBC (3.5-6.1) 10^6/uL Hgb (14.0-18.0) g/dL Hct (42.0-52.0) % MCV (80.0-105.0) fl MCH (25.0-35.0) pg MCHC (31.0-37.0) g/dl RDW (11.5-14.5) % Plt Count (120.0-450.0) 10^3/uL MPV (7.0-11.0) fl Gran % (50.0-68.0) % Lymph % (Auto) (22.0-35.0) % Harlan % (Auto) (1.0-6.0) % Eos % (Auto) (1.5-5.0) % Baso % (Auto) (0.0-3.0) % Gran # (1.4-6.5) Lymph # (1.2-3.4) Harlan # (0.1-0.6) Eos # (0.0-0.7) Baso # (0.0-2.0) K/mm3 pCO2 54 H (35-45) mm/Hg pO2 255.0 H (80-100) mm/Hg HCO3 27.8 (21-28) mmol/L ABG pH 7.32 L (7.35-7.45) ABG Total CO2 29.5 H (22-28) mmol.L ABG O2 Saturation 100.1 H (95-98) % ABG O2 Content 16.4 (15-23) ML/dl ABG Base Excess 0.9 (-2.0-3.0) mmol/L ABG Hemoglobin 11.7 (11.7-17.4) g/dL ABG Carboxyhemoglobin 3.1 H (0.5-1.5) % POC ABG HHb (Measured) -0.1 L (0-5) % ABG Methemoglobin 1.1 (0.0-3.0) % ABG O2 Capacity 16.4 (16-24) mL/dl Hgb O2 Saturation 95.8 (95.0-98.0) % FiO2 32.0 % Sodium (132-148) mmol/L Potassium (3.6-5.0) mmol/L Chloride (98-107) mmol/L Carbon Dioxide (21-33) mmol/L Anion Gap (10-20) BUN (7-21) mg/dL Creatinine (0.8-1.5) mg/dL Est GFR ( Amer) Est GFR (Non-Af Amer) Random Glucose (70-110) mg/dL Calcium (8.4-10.5) mg/dL Phosphorus (2.5-4.5) mg/dL Magnesium (1.7-2.2) mg/dL Total Bilirubin (0.2-1.3) mg/dL AST (17-59) U/L ALT (7-56) U/L Alkaline Phosphatase (38-126) U/L Troponin I ng/mL Total Protein (5.8-8.3) g/dL Albumin (3.0-4.8) g/dL Globulin gm/dL Albumin/Globulin Ratio (1.1-1.8) Laboratory Results - last 24 hr 03/18/17 03/18/17 03/18/17 00:47 07:50 08:00 WBC 8.7 RBC 4.30 Hgb 12.5 L Hct 38.1 L MCV 88.6 MCH 29.1 MCHC 32.8 RDW 14.4 Plt Count 188 MPV 9.2 Gran % 66.1 Lymph % (Auto) 22.0 Harlan % (Auto) 9.2 H Eos % (Auto) 2.6 Baso % (Auto) 0.1 Gran # 5.74 Lymph # 1.9 Harlan # 0.8 H Eos # 0.2 Baso # 0.01 pCO2 54 H pO2 255.0 H HCO3 27.8 ABG pH 7.32 L ABG Total CO2 29.5 H ABG O2 Saturation 100.1 H ABG O2 Content 16.4 ABG Base Excess 0.9 ABG Hemoglobin 11.7 ABG Carboxyhemoglobin 3.1 H POC ABG HHb (Measured) -0.1 L ABG Methemoglobin 1.1 ABG O2 Capacity 16.4 Hgb O2 Saturation 95.8 FiO2 32.0 Sodium 143 Potassium 4.0 Chloride 109 H Carbon Dioxide 28 Anion Gap 10 BUN 7 Creatinine 0.6 L Est GFR ( Amer) > 60 Est GFR (Non-Af Amer) > 60 Random Glucose 95 Calcium 8.7 Phosphorus 2.6 Magnesium 1.8 Total Bilirubin 0.4 AST 30 ALT 28 Alkaline Phosphatase 55 Troponin I < 0.01 Total Protein 5.9 Albumin 3.5 Globulin 2.4 Albumin/Globulin Ratio 1.5 03/18/17 14:00 WBC RBC Hgb Hct MCV MCH MCHC RDW Plt Count MPV Gran % Lymph % (Auto) Harlan % (Auto) Eos % (Auto) Baso % (Auto) Gran # Lymph # Harlan # Eos # Baso # pCO2 pO2 HCO3 ABG pH ABG Total CO2 ABG O2 Saturation ABG O2 Content ABG Base Excess ABG Hemoglobin ABG Carboxyhemoglobin POC ABG HHb (Measured) ABG Methemoglobin ABG O2 Capacity Hgb O2 Saturation FiO2 Sodium 143 Potassium 3.8 Chloride 110 H Carbon Dioxide 26 Anion Gap 11 BUN 7 Creatinine 0.6 L Est GFR ( Amer) > 60 Est GFR (Non-Af Amer) > 60 Random Glucose 91 Calcium 8.7 Phosphorus Magnesium Total Bilirubin 0.3 AST 26 ALT 30 Alkaline Phosphatase 48 Troponin I < 0.01 Total Protein 5.8 Albumin 3.5 Globulin 2.4 Albumin/Globulin Ratio 1.5 EKG/Cardiology Studies: Cardiology / EKG Studies 03/18/17 06:54 EKG [ELECTROCARDIOGRAM] Stat Comment: Reason For Exam: od 03/18/17 17:00 ELECTROCARDIOGRAM DAILY Comment: Reason For Exam: f/u intervals, s/p polydrug OD Critical Care Progress Note - Nutrition Nutrition: Nutrition Category Date Time Status Regular Diet [DIET] Diets 03/19/17 Breakfast Ordered Attending/Attestation - Attestation I have personally seen and examined this patient.: Yes I have fully participated in the care of the patient.: Yes I have reviewed all pertinent clinical information: Yes Notes (Text): 03/18/17 15:34 41 y/o M w/ Toxic OD of his physch / antideppresants. Brought to the ICU due to stupor state. Currently aaox 3 an dconversing. No acute complaints or disorientation. No acute EKG changes or Lab abnormalities . Psych eval pending. Monitor 1:1 for possible suicide attempt. cc time 55 min
[2017-03-18 14:43] LABS: TROPONIN I < 0.01 ng/mL
[2017-03-18 15:23] LABS: ALB/GLOB RATIO 1.5 (1.1-1.8); ALKALINE PHOSPHATASE 48 U/L (38-126); ALT/SGPT 30 U/L (7-56); AST/SGOT 26 U/L (17-59); BILIRUBIN,TOTAL 0.3 mg/dL (0.2-1.3); BLOOD UREA NITROGEN 7 mg/dL (7-21); CALCIUM 8.7 mg/dL (8.4-10.5); CARBON DIOXIDE 26 mmol/L (21-33); CHLORIDE 110 mmol/L (98-107); GFR AFRICAN-AMERICAN > 60; GLUCOSE,RANDOM 91 mg/dL (70-110); POTASSIUM 3.8 mmol/L (3.6-5.0); SODIUM 143 mmol/L (132-148); TOTAL PROTEIN 5.8 g/dL (5.8-8.3)
--- NOTE | 2017-03-18 22:29 | CARD ---
APPROVED REPORT EKG Measurement Heart [id number] <Conclusion> Normal sinus rhythm Normal ECG
--- NOTE | 2017-03-18 22:56 | CARD ---
APPROVED REPORT EKG Measurement Heart [id number] <Conclusion> Normal sinus rhythm Normal ECG
--- NOTE | 2017-03-18 22:58 | CARD ---
APPROVED REPORT EKG Measurement Heart [id number] <Conclusion> Normal sinus rhythm Normal ECG
[2017-03-19] MEDS: Sodium Chloride 0.9% 1,000 ML IV SCH ×2 (04:25→10:08)
[2017-03-19 05:54] LABS: ALB/GLOB RATIO 1.3 (1.1-1.8); ALKALINE PHOSPHATASE 40 U/L (38-126); ALT/SGPT 21 U/L (7-56); AST/SGOT 25 U/L (17-59); BASO # 0.02 K/mm3 (0.0-2.0); BASO % 0.3 % (0.0-3.0); BILIRUBIN,TOTAL 0.3 mg/dL (0.2-1.3); BLOOD UREA NITROGEN 10 mg/dL (7-21); CALCIUM 8.2 mg/dL (8.4-10.5); CARBON DIOXIDE 28 mmol/L (21-33); CHLORIDE 109 mmol/L (98-107); EOS # 0.3 (0.0-0.7); EOS % 3.9 % (1.5-5.0); GFR AFRICAN-AMERICAN > 60; GLUCOSE,RANDOM 98 mg/dL (70-110); GRAN # 3.39 (1.4-6.5); GRAN % 52.8 % (50.0-68.0); HEMATOCRIT 34.1 % (42.0-52.0); LYMPH # 2.1 (1.2-3.4); LYMPH % 32.9 % (22.0-35.0); MAGNESIUM 1.7 mg/dL (1.7-2.2); MEAN CELL VOLUME 88.8 fl (80.0-105.0); MEAN CORPUSCULAR HEMOGLOBIN 29.2 pg (25.0-35.0); MEAN CORPUSCULAR HGB CONC 32.8 g/dl (31.0-37.0); MEAN PLATELET VOLUME 9.4 fl (7.0-11.0); MONO # 0.7 (0.1-0.6); MONO % 10.1 % (1.0-6.0); PHOSPHOROUS 2.8 mg/dL (2.5-4.5); POTASSIUM 3.8 mmol/L (3.6-5.0); RED CELL DISTRIBUTION WIDTH 14.6 % (11.5-14.5); SODIUM 141 mmol/L (132-148); TOTAL PROTEIN 5.4 g/dL (5.8-8.3); WHITE BLOOD COUNT 6.4 10^3/ul (4.5-11.0)
--- NOTE | 2017-03-19 09:41 | CP.PCM.PN ---
<Mackenzie Navarrete - Last Filed: 03/19/17 17:18> Subjective - Date & Time of Evaluation Date of Evaluation: 03/19/17 Time of Evaluation: 09:41 - Subjective Subjective: Hospitalist Service Progress Note: Patient seen and examined at bedside. Per nursing no acute events overnight. Patient is doing well, states that she is having burning while urinating for the past few days. Offers no other complaints at this time. Denies headaches, dizziness, cp, palpitations, sob, abdominal pain, changes in bowel habits. Objective - Vital Signs/Intake and Output Vital Signs (last 24 hours): Temp Pulse Resp BP Pulse Ox 98 F 71 25 H 133/76 100 03/19/17 05:00 03/19/17 03:50 03/19/17 03:50 03/19/17 06:55 03/19/17 04:00 Intake and Output: 03/19/17 03/19/17 06:59 18:59 Intake Total 1950 Output Total 1200 Balance 750 - Medications Medications: Current Medications Benztropine Mesylate (Cogentin) 1 mg PO DAILY JOSEPHINE Clonazepam (Klonopin) 1 mg PO DAILY PRN; Protocol PRN Reason: Anxiety Sodium Chloride (Sodium Chloride 0.9%) 1,000 mls @ 150 mls/hr IV .Q6H40M [facility] Last Admin: 03/19/17 04:25 Dose: 150 mls/hr Lamotrigine (Lamictal) 25 mg PO DAILY JOSEPHINE PRN Reason: Protocol Pantoprazole Sodium (Protonix Inj) 40 mg IVP DAILY [facility] Last Admin: 03/18/17 10:30 Dose: 40 mg Risperidone (Risperdal Tab) 1 mg PO DAILY JOSEPHINE PRN Reason: Protocol Zaleplon (Sonata) 5 mg PO PRN PRN Reason: Insomnia - Labs Labs: 03/19/17 05:00 03/19/17 05:00 PT 11.4 SECONDS (9.4-12.5) 03/17/17 23:30 INR 1.04 (0.93-1.08) 03/17/17 23:30 APTT 29.1 Seconds (25.1-36.5) 03/17/17 23:30 - Constitutional Appears: Well, No Acute Distress - Head Exam Head Exam: ATRAUMATIC, NORMAL INSPECTION, NORMOCEPHALIC - Eye Exam Eye Exam: EOMI, Normal appearance Pupil Exam: NORMAL ACCOMODATION - ENT Exam ENT Exam: Mucous Membranes Moist - Neck Exam Neck Exam: Full ROM - Respiratory Exam Respiratory Exam: Clear to Ausculation Bilateral, NORMAL BREATHING PATTERN. absent: Rales, Rhonchi, Wheezes, Respiratory Distress - Cardiovascular Exam Cardiovascular Exam: REGULAR RHYTHM, +S1, +S2 - GI/Abdominal Exam GI & Abdominal Exam: Soft, Normal Bowel Sounds. absent: Guarding, Rigid, Tenderness, Hyperactive Bowel Sounds - Extremities Exam Extremities Exam: Full ROM, Normal Inspection. absent: Calf Tenderness - Back Exam Back Exam: NORMAL INSPECTION - Neurological Exam Neurological Exam: Alert, Awake, Oriented x3 - Psychiatric Exam Psychiatric exam: Anxious, Normal Affect Additional comments: Slightly tremulous - Skin Skin Exam: Dry, Normal Color, Warm Assessment and Plan - Assessment and Plan (Free Text) Assessment: 41 M with PMHx of HTN, seizures, BPH, asthma, hyperlipidemia, GERD, headaches, bipolar disorder, schizoaffective, and gender identity disorder who presented to the ED with AMS 2/2 polypharmacy admitted to ICU for close monitoring. Altered Mental Status 2/2 polypharmacy (resolved) -Presented with toxic overdose of psych and antidepressants -Currently Awake Alert and Orientated x 3 -CT head negative for intracranial pathology -UTox notable for Benzos, Barbs, Canabannoids -Poison control was contacted on admission, signed off -Hx of seizures, seizure precautions -On 1:1 -Psych consulted, f/u recommendations -Will down grade to med/surg today -F/U HIV, hep panel Dysuria -UA on admission was negative -Will repeat UA and Urine culture Headaches -Fiorocet prn headache Hx of Bipolar disorder, schizoaffective disorder, gender dysphoria -On cogentin, Lamictal, klonopin, resperidone -Psych consulted, f/u recommendations Hx of Hypertension -Currently normatensive -Continue to monitor GI/DVT ppx -Protonix -SCDs <Eliazar Gunderson - Last Filed: 03/19/17 17:44> Objective - Vital Signs/Intake and Output Vital Signs (last 24 hours): Temp Pulse Resp BP Pulse Ox 98 F 67 22 127/74 97 03/19/17 15:36 03/19/17 15:36 03/19/17 15:36 03/19/17 15:36 03/19/17 15:36 Intake and Output: 03/19/17 03/19/17 06:59 18:59 Intake Total 1950 Output Total 1200 Balance 750 - Medications Medications: Current Medications Acetaminophen/Butalbital/Caffeine (Fioricet) 1 tab PO Q4H PRN PRN Reason: Headache Last Admin: 03/19/17 11:19 Dose: 1 tab Baclofen (Lioresal) 10 mg PO TID PRN PRN Reason: Muscle spasm Last Admin: 03/19/17 17:14 Dose: 10 mg Benztropine Mesylate (Cogentin) 1 mg PO DAILY JOSEPHINE Last Admin: 03/19/17 10:05 Dose: 1 mg Cholecalciferol (Vitamin D) 1,000 iu PO DAILY JOSEPHINE Last Admin: 03/19/17 17:13 Dose: 1,000 iu Clonazepam (Klonopin) 1 mg PO DAILY PRN; Protocol PRN Reason: Anxiety Last Admin: 03/19/17 10:06 Dose: 1 mg Lamotrigine (Lamictal) 25 mg PO DAILY JOSEPHINE PRN Reason: Protocol Last Admin: 03/19/17 10:06 Dose: 25 mg Montelukast Sodium (Singulair) 10 mg PO HS JOSEPHINE Pantoprazole Sodium (Protonix Ec Tab) 40 mg PO 0600 JOSEPHINE Risperidone (Risperdal Tab) 1 mg PO DAILY JOSEPHINE PRN Reason: Protocol Last Admin: 03/19/17 10:05 Dose: 1 mg Zaleplon (Sonata) 5 mg PO HS PRN PRN Reason: Insomnia - Labs Labs: 03/19/17 05:00 03/19/17 05:00 PT 11.4 SECONDS (9.4-12.5) 03/17/17 23:30 INR 1.04 (0.93-1.08) 03/17/17 23:30 APTT 29.1 Seconds (25.1-36.5) 03/17/17 23:30 Attending/Attestation - Attestation I have personally seen and examined this patient.: Yes I have fully participated in the care of the patient.: Yes I have reviewed all pertinent clinical information, including history, physical exam and plan: Yes Notes (Text): 03/19/17 17:37 attending note; Patient seen and examined with resident in icu this morning. patient is a 41 Male with PMHx of HTN, seizures, asthma, hyperlipidemia, GERD, migrainbe headache, bipolar disorder, schizoaffective, and gender identity disorder who presented to the ED with AMS 2/2 polypharmacy admitted to ICU for close monitoring. currently patient is alert, awake. Complaining of urinary symptoms. mostly secondary to Ma catheter placement in the ER. Currently Ma i s removed. UA is negative. Urine culture ordered. patient is tolerating diet. Transfer to [facility] floor. Psychiatric evaluation appreciated. Started on psych medication. Case discussed with dr. Pal in detail. Continue one-to-one. patient/patient partner explained in detail about multiple drug use. Polypharmacy is a cause of lethargy. Denied Interventional drug overdose.denied suicidal ideation. Patient is strongly advised to stop taking multipledications. Patient takes baclofen, risperidone, Ambien, Claritin, furosemide, clonazepam from [facility]. [phone]. Case discussed with patient's partner in detail. Patient is medically stable. Psych reevaluation in am. Possible transfer to sychiatric floor versus discharge home tomorrow. upon discharge the patient will follow-up with PMD . Patient needs close psychiatrist Angel Adkins.
[2017-03-19] MEDS ORDERED: Apap-Butalbital-Caffeine 325-50-40mg Tab PO PRN (10:52)
[2017-03-19 13:02] LABS: URINE BILIRUBIN NEGATIVE (NEGATIVE); URINE BLOOD NEGATIVE (NEGATIVE); URINE GLUCOSE (UA) NEGATIVE (NEGATIVE); URINE KETONE NEGATIVE (NEGATIVE); URINE LEUKOCYTE ESTERASE NEGATIVE Leu/uL (NEGATIVE); URINE PROTEIN NEGATIVE mg/dL (<30 mg/dL); URINE UROBILINOGEN 0.2 E.U./dL (<1 E.U./dL)
[2017-03-19 13:04] LABS: URINE APPEARANCE CLEAR (CLEAR); URINE COLOR LIGHT YELLOW (YELLOW)
[2017-03-20 00:50] VITALS: RESP 18
--- NOTE | 2017-03-20 06:26 | CON ---
DATE: HISTORY OF PRESENT ILLNESS: The patient is a 41-year-old male who identifies as a female with name of "Gisel" with a psychiatric history of schizoaffective disorder versus bipolar disorder as well as anxiety disorder. No reported history of psychiatric hospitalization for suicide attempts. In treatment with psychiatrist Dr. Ortiz for the past year and being prescribed reportedly Lamictal 200 mg at bedtime, Klonopin 1 mg daily p.r.n., Vistaril 50 mg p.r.n. daily, Risperdal 1 mg daily, Cogentin 1 mg daily, and Ambien 10 mg daily p.r.n., who was brought in by EMS due to reported possible overdose as he was found with multiple empty bottles including Ambien, 2 Klonopin bottles, B12 bottles and baclofen bottle nearby. The patient presented to the ER with altered mental status and was subsequently admitted to the CTU for further stabilization. Psychiatry is consulted due to determined possible intentional versus unintentional overdose. I met with the patient at bedside, the patient is guarded and oriented to location, months and year. The patient reluctantly engages in the interview with me and though she does repeatedly request why the interview was necessary. The patient responses are brief without much elaboration. The patient is mildly irritable, and affect is constricted. Nonetheless, her responses are consistent and relevant to questioning. The patient denies having any depression, denies having any major and anxiety issues or stressors that would cause an intentional overdose. The patient indicated that she has no idea what happened and she was just passed out. She denies taking anymore Ambien then prescribed as she does not why there were empty bottles near her. There is difficult to engage the patient in an interview and her trust. The patient indicates that she was taking her medications prior to hospitalization, however, this provider cannot confirm this and the patient would like to continue with medication. This provider indicated that he would not be continuing Ambien for the patient as the Ambien can cause forgetfulness and confusion, which may have led to the overdose. The patient indicated that if I do not prescribe Ambien and that the patient will not take any of the medication. This was considered an odd response and situation for this provider was reassuring the patient throughout that my role is only to support and help her. The patient denies any hallucination. The patient does not appear to be hallucinating, the noted affect is quite constricted. I request name and contact numbers of collateral people of family or member in patient's life and the patient indicates that, she has been to someone named Annia for 12 years; however, Annia does not have cell phone or home number that we could reached her at, though the patient does agree for us to obtain collateral from Annia. The patient denies having any other individual with contact to get collateral information about her functioning. Her insight and judgement considered to be poor at this time. PAST PSYCHIATRIC HISTORY: The patient denies any prior psychiatric hospitalizations or suicide attempts. As noted above, the patient has been seeing Dr. Ortiz for past year and is being reportedly prescribed Lamictal 200 mg at bedtime, Klonopin 1 mg daily p.r.n., Vistaril 50 mg daily p.r.n., Risperdal 1 mg daily, Cogentin 1 mg daily as well as Ambien 10 mg at bedtime p.r.n. Last followup with Dr. Ortiz was on 02/08/2017 and the next followup scheduled for 04/2017. SOCIAL HISTORY: The patient was born and raised in [place]. She has been to female individual named Annia for last 12 years, they do not have any children. The patient is unemployed, never graduate high school and went as far as 8th grade. The patient only reside with . The patient denies any drug use except for occasional marijuana. The patient denies alcohol use. RELEVANT PSYCHIATRIC MEDICATIONS: The patient is not on any relevant psychiatric medications on unit thus far. PHYSICAL EXAMINATION VITAL SIGNS: Reviewed by this provider. LABORATORY DATA: Labs were also reviewed by this provider. UDS was positive on 03/18/2017 for barbiturates, benzos and marijuana. IMPRESSION: Schizoaffective disorder despite by history, rule out major depressive disorder severe, likely borderline personality disorder, anxiety disorder, intentional versus unintentional overdose. At this time, I will restart Risperdal 1 mg daily, Cogentin 1 mg daily, Klonopin will be restarted at 1 mg p.r.n. daily, Lamictal will be restarted 25 mg daily and titrated slowly up. This patient is unknown to this provider and I cannot verify this patient has been taken Lamictal 200 at bedtime and I do not want to increased risk of Clemente-Fracisco syndrome by starting at high dose if the patient has not been complaint with medications. Ambien will not be restarted for the patient due to the mystery of patient's presentation. The patient should be kept on one-to-one. She is very guarded and is not providing adequate collaterals or contact numbers and the reason for her presentation is largely unknown, therefore, she is unpredictable. The patient indicates that her Annia does not have any contact number, I recommend strongly that senior technical support engineer and medical team try to interview Annia, when Annia visits with the patient to obtain any collateral information about the patient's functioning and the nature of the patient's presentation prior to admission. If this is not possible this provider does not feel comfortable clearing the patient psychiatrically. The patient is quite clear and she does not want to be transferred to the psychiatric unit. However, without any further information this provider has to make conservative decision and request a screening once the patient is medically cleared. This provider will continue to follow the patient until that occurs. Nyasia Cain MD
[2017-03-20] MEDS: Pantoprazole 40 mg EC Tab PO SCH (06:40)
[2017-03-20 08:03] LABS: BASO # 0.02 K/mm3 (0.0-2.0); BASO % 0.3 % (0.0-3.0); EOS # 0.2 (0.0-0.7); EOS % 3.1 % (1.5-5.0); GRAN # 3.06 (1.4-6.5); GRAN % 39.1 % (50.0-68.0); HEMATOCRIT 40.9 % (42.0-52.0); LYMPH # 3.8 (1.2-3.4); LYMPH % 49.2 % (22.0-35.0); MEAN CELL VOLUME 88.5 fl (80.0-105.0); MEAN CORPUSCULAR HEMOGLOBIN 29.7 pg (25.0-35.0); MEAN CORPUSCULAR HGB CONC 33.5 g/dl (31.0-37.0); MEAN PLATELET VOLUME 9.4 fl (7.0-11.0); MONO # 0.7 (0.1-0.6); MONO % 8.3 % (1.0-6.0); RED CELL DISTRIBUTION WIDTH 14.6 % (11.5-14.5); WHITE BLOOD COUNT 7.8 10^3/ul (4.5-11.0)
[2017-03-20 08:05] LABS: ALB/GLOB RATIO 1.6 (1.1-1.8); ALKALINE PHOSPHATASE 58 U/L (38-126); ALT/SGPT 28 U/L (7-56); AST/SGOT 28 U/L (17-59); BILIRUBIN,TOTAL 0.4 mg/dL (0.2-1.3); BLOOD UREA NITROGEN 11 mg/dL (7-21); CALCIUM 9.6 mg/dL (8.4-10.5); CARBON DIOXIDE 31 mmol/L (21-33); CHLORIDE 102 mmol/L (98-107); GFR AFRICAN-AMERICAN > 60; GLUCOSE,RANDOM 106 mg/dL (70-110); MAGNESIUM 1.8 mg/dL (1.7-2.2); PHOSPHOROUS 3.1 mg/dL (2.5-4.5); POTASSIUM 3.9 mmol/L (3.6-5.0); SODIUM 140 mmol/L (132-148)
--- NOTE | 2017-03-20 17:11 | CP.PCM.PN ---
<Mackenzie Navarrete - Last Filed: 03/20/17 17:18> Subjective - Date & Time of Evaluation Date of Evaluation: 03/20/17 Time of Evaluation: 09:30 - Subjective Subjective: Hospitalist Service Progress Note: Patient seen and examined at the bedside. Per nursing no acute events overnight. Patient is without complaints at this time. Patient was seen with both Psychiatrist and Medical attending present. Attempted to determine whether overdose was intentional or unintentional. When asked for a contact that could provide collateral information, patient was reluctant to provide phone number of her partner. Denies headaches, dizziness, cp, palpitations, sob, abdominal pain, urinary symptoms, changes in bowel habits. Objective - Vital Signs/Intake and Output Vital Signs (last 24 hours): Temp Pulse Resp BP Pulse Ox 97 F L 70 18 120/87 95 03/20/17 15:38 03/20/17 15:38 03/20/17 15:38 03/20/17 15:38 03/20/17 15:38 - Medications Medications: Current Medications Acetaminophen/Butalbital/Caffeine (Fioricet) 1 tab PO Q4H PRN PRN Reason: Headache Last Admin: 03/19/17 11:19 Dose: 1 tab Baclofen (Lioresal) 10 mg PO TID PRN PRN Reason: Muscle spasm Last Admin: 03/19/17 17:14 Dose: 10 mg Benztropine Mesylate (Cogentin) 1 mg PO DAILY [facility] Last Admin: 03/20/17 10:31 Dose: Not Given Cholecalciferol (Vitamin D) 1,000 iu PO DAILY [facility] Last Admin: 03/20/17 10:31 Dose: 1,000 iu Clonazepam (Klonopin) 1 mg PO DAILY PRN; Protocol PRN Reason: Anxiety Last Admin: 03/19/17 10:06 Dose: 1 mg Lamotrigine (Lamictal) 50 mg PO DAILY JOSEPHINE PRN Reason: Protocol Montelukast Sodium (Singulair) 10 mg PO HS [facility] Last Admin: 03/19/17 21:16 Dose: 10 mg Pantoprazole Sodium (Protonix Ec Tab) 40 mg PO 0600 JOSEPHINE Last Admin: 03/20/17 06:40 Dose: 40 mg Risperidone (Risperdal Tab) 1 mg PO DAILY JOSEPHINE PRN Reason: Protocol Last Admin: 03/20/17 10:31 Dose: Not Given Zaleplon (Sonata) 5 mg PO HS PRN PRN Reason: Insomnia Last Admin: 03/19/17 21:16 Dose: 5 mg - Labs Labs: 03/20/17 07:30 03/20/17 07:30 PT 11.4 SECONDS (9.4-12.5) 03/17/17 23:30 INR 1.04 (0.93-1.08) 03/17/17 23:30 APTT 29.1 Seconds (25.1-36.5) 03/17/17 23:30 - Constitutional Appears: Non-toxic, No Acute Distress - Head Exam Head Exam: ATRAUMATIC, NORMAL INSPECTION - Eye Exam Eye Exam: EOMI, Normal appearance Pupil Exam: NORMAL ACCOMODATION - ENT Exam ENT Exam: Mucous Membranes Moist - Neck Exam Neck Exam: Full ROM - Respiratory Exam Respiratory Exam: Clear to Ausculation Bilateral, NORMAL BREATHING PATTERN. absent: Rales, Rhonchi, Wheezes - Cardiovascular Exam Cardiovascular Exam: REGULAR RHYTHM, +S1, +S2 - GI/Abdominal Exam GI & Abdominal Exam: Soft. absent: Guarding, Rigid, Tenderness, Rebound - Extremities Exam Extremities Exam: Normal Inspection - Back Exam Back Exam: NORMAL INSPECTION - Neurological Exam Neurological Exam: Alert, Awake, Normal Gait, Oriented x3 - Psychiatric Exam Psychiatric exam: Normal Affect, Normal Mood - Skin Skin Exam: Dry, Normal Color, Warm Assessment and Plan - Assessment and Plan (Free Text) Assessment: 41 M with PMHx of HTN, seizures, BPH, asthma, hyperlipidemia, GERD, headaches, bipolar disorder, schizoaffective, and gender identity disorder who presented to the ED with AMS 2/2 polypharmacy admitted to ICU for close monitoring. Plan: 1. Altered Mental Status 2/2 polypharmacy (resolved) -Presented with toxic overdose of psych and antidepressants -Currently Awake Alert and Orientated x 3 -CT head negative for intracranial pathology -UTox notable for Benzos, Barbs, Canabannoids -Hx of seizures, seizure precautions -Patient/patient partner explained in detail about multiple drug use; Polypharmacy is a cause of lethargy. -Patient is strongly advised to stop taking multiple medications. -Continue 1:1 sitter for safety -Denies intentional drug overdose, denies suicidal ideation. Doesnt wish to go to psych floor -Patient to be evaluated by [facility] [place] [place] screeners for involuntary commitment -Psych consulted, f/u recommendations -F/U HIV, hep panel 2. Dysuria -UA on admission was negative -Repeat UA and urine cx negative -Patient informed likely 2/2 valdovinos catheter placement 3. Headaches -Fiorocet prn headache 4. Hx of Bipolar disorder, schizoaffective disorder, gender dysphoria -On cogentin, Lamictal, klonopin, resperidone -Psych consulted, f/u recommendations 5. Hx of Hypertension -Currently normatensive -Continue to monitor GI/DVT ppx -Protonix -SCDs <Eliazar Gunderson - Last Filed: 03/20/17 18:11> Objective - Vital Signs/Intake and Output Vital Signs (last 24 hours): Temp Pulse Resp BP Pulse Ox 97 F L 70 18 120/87 95 03/20/17 15:38 03/20/17 15:38 03/20/17 15:38 03/20/17 15:38 03/20/17 15:38 - Medications Medications: Current Medications Acetaminophen/Butalbital/Caffeine (Fioricet) 1 tab PO Q4H PRN PRN Reason: Headache Last Admin: 03/19/17 11:19 Dose: 1 tab Baclofen (Lioresal) 10 mg PO TID PRN PRN Reason: Muscle spasm Last Admin: 03/19/17 17:14 Dose: 10 mg Benztropine Mesylate (Cogentin) 1 mg PO DAILY [facility] Last Admin: 03/20/17 10:31 Dose: Not Given Cholecalciferol (Vitamin D) 1,000 iu PO DAILY [facility] Last Admin: 03/20/17 10:31 Dose: 1,000 iu Clonazepam (Klonopin) 1 mg PO DAILY PRN; Protocol PRN Reason: Anxiety Last Admin: 03/19/17 10:06 Dose: 1 mg Lamotrigine (Lamictal) 50 mg PO DAILY JOSEPHINE PRN Reason: Protocol Montelukast Sodium (Singulair) 10 mg PO HS JOSEPHINE Last Admin: 03/19/17 21:16 Dose: 10 mg Pantoprazole Sodium (Protonix Ec Tab) 40 mg PO 0600 JOSEPHINE Last Admin: 03/20/17 06:40 Dose: 40 mg Risperidone (Risperdal Tab) 1 mg PO DAILY JOSEPHINE PRN Reason: Protocol Last Admin: 03/20/17 10:31 Dose: Not Given Zaleplon (Sonata) 5 mg PO HS PRN PRN Reason: Insomnia Last Admin: 03/19/17 21:16 Dose: 5 mg - Labs Labs: 03/20/17 07:30 03/20/17 07:30 PT 11.4 SECONDS (9.4-12.5) 03/17/17 23:30 INR 1.04 (0.93-1.08) 03/17/17 23:30 APTT 29.1 Seconds (25.1-36.5) 03/17/17 23:30 Attending/Attestation - Attestation I have personally seen and examined this patient.: Yes I have fully participated in the care of the patient.: Yes I have reviewed all pertinent clinical information, including history, physical exam and plan: Yes Notes (Text): 03/20/17 18:08 attending note; Patient seen and examined with resident. patient is a 41 Male with PMHx of HTN, seizures, asthma, hyperlipidemia, GERD, migrainbe headache, bipolar disorder, schizoaffective, and gender identity disorder who presented to the ED with AMS 2/2 polypharmacy admitted to ICU for close monitoring. currently patient is alert, awake. Complaining of urinary symptoms. mostly secondary to Valdovinos catheter placement in the ER. Currently Valdovinos i s removed. UA is negative. Urine culture is negative. patient is tolerating diet. Psychiatric evaluation appreciated. Started on medication. Case discussed with dr. Pal in detail. Continue one-to-one. Case discussed with patient's partner in detail. Patient is medically stable. psychiatrist requested involuntary commitment evaluation from [facility] [place]. upon discharge the patient will follow-up with PMD . Patient needs close psychiatrist Angel Adkins.
--- NOTE | 2017-03-20 22:33 | CON ---
DATE: 03/20/2017 HISTORY OF PRESENT ILLNESS: The patient is a 41-year-old transgender [id number] patient, who identifies with a name of Gisel with a psychiatric history of schizoaffective disorder versus bipolar disorder, as well as anxiety, who is found under unknown circumstances with empty pill bottles around her and subsequently hospitalized. The patient was seen yesterday and she was found to be very guarded and reluctant to provide collateral contact information for this provider to speak with the . The patient denied that her present admission was due to a suicide attempt. She denies stressors and she denies depression. Dr. Gunderson and this provider met with the patient at bedside this morning. Dr. Gunderson explained to the patient that the patient*s medical situation appears to be improving; however, psychiatrically, this provider needs further collateral information in order for psychiatric clearance. The patient was very reluctant to provide her *s contact information; however, once this provider stressed that [facility] screening would be called if no collateral information could be provided, the patient eventually allowed this provider to talk to her . I spoke with the patient*s , her name is Annia Ramires, at [phone]. Annia stated that she did not know what were the circumstances of patient's presentation, but she felt that the patient would self-treat with :everything around her.Ru Milner with some reluctance eventually had finally confided that the patient indeed did try to commit suicide. Annia is very reluctant to reveal this information and she does not want anybody in the hospital to let the patient knew that this information originated from her. This provider indicated that it was my intuition that patient tried to commit suicide and Annia indicated :follow your gut feeling.Ru Milner indicated that she had a verbal argument with the patient yesterday because she thought that the patient needed to be hospitalized. During the verbal argument, the patient had told Annia to be quiet because she did not want the one-to-one hearing Annia say that. In response, Annia stated :it is not a secret why you are here.Ru Milner indicated that she thought that the patient would benefit from a hospitalization, especially since that their psychiatrist, Dr. Ortiz, she does not feel that their psychiatrist was beneficial and paying enough attention to the patient. Of note, Annia and the patient have same psychiatrist, Dr. Ortiz. Please note that about 30 minutes later, I received a word from the nursing staff indicating that wanted me to call her back. When I called the back at the same number of [phone], now presented with a completely different story stating that she does not think that the patient needs to be hospitalized and that her presentation was not due to an overdose and that she would be responsible for if the patient should be discharged. It is unclear why the patient*s presented with a completely contradictory story, but it is my intuition that the patient called the to discuss changing the information provided to me; although, this has not been confirmed. Regardless, I did speak with Janee Niño, the patient*s [id number], who confirms that the patient and her has been having issues, conflicts, which is something that also confirmed with me during my phone call with her. Janee did not know the circumstances of the patient*s presentation, but did believe that the patient had a prior overdose many years ago prior to the relationship starting with her current of more than 12 years. Of note, Annia the patient*s , did inform that they have been having a lot of difficulty in their relationship and conflict and that she has stayed with her father one and half day and saw the patient at 8:00 a.m. the day of overdose, spoke with her 5:00 p.m.; however, around 8:00 p.m. she could not get in touch with her, so she asked the friend to go over to the home and her friend found the patient on the floor surrounded by pills. Annia also confided that on January 18 she found out she was and the patient had convinced her to get an because they could not financially raise child. It is noted that the patient still reported that she was not depressed, she denies having any stressors in life. On interview with her at bedside with Dr. Gunderson today, she did not want a transfer to the psychiatric unit. Vital signs and labs were reviewed. Relevant psychiatric medications include; Sonata 5 mg at bedtime p.r.n., Risperdal 1 mg daily, Klonopin 1 mg daily p.r.n., Lamictal 25 at bedtime and Cogentin 1 mg daily. IMPRESSION: Schizoaffective disorder by history, rule out major depressive disorder severe, likely a borderline personality disorder, anxiety disorder, likely status post overdose. RECOMMENDATIONS: We will continue with current medications of Cogentin 1 mg daily, Risperdal 1 mg daily as well as Klonopin 1 mg daily p.r.n., Sonata 5 mg at bedtime p.r.n. Lamictal will be slowly titrated to 50 mg p.o. daily until 200 mg is reached. As noted in yesterday*s note, this provider is not so comfortable starting the patient on 200 mg daily of Lamictal, as the patient is an unreliable historian and I do want not add the risk of Clemente-Fracisco syndrome by starting her on a dose of 200 mg if she has not been compliant with medication. Extensively I discussed the situation with nursing and Dr. Zelaya and we will call [facility] screening at this time if the patient presents to be a risk to herself. It remains unpredictable due to the inconsistency of her information provided to all her providers in the unit. Nyasia Cain MD
[2017-03-21] MEDS: Pantoprazole 40 mg EC Tab PO SCH (06:16)
[2017-03-21 07:05] LABS: BASO # 0.02 K/mm3 (0.0-2.0); BASO % 0.3 % (0.0-3.0); EOS # 0.4 (0.0-0.7); EOS % 5.7 % (1.5-5.0); GRAN # 3.12 (1.4-6.5); GRAN % 45.4 % (50.0-68.0); HEMATOCRIT 35.6 % (42.0-52.0); LYMPH # 2.7 (1.2-3.4); LYMPH % 39.4 % (22.0-35.0); MEAN CORPUSCULAR HEMOGLOBIN 29.3 pg (25.0-35.0); MEAN CORPUSCULAR HGB CONC 32.9 g/dl (31.0-37.0); MEAN PLATELET VOLUME 9.2 fl (7.0-11.0); MONO # 0.6 (0.1-0.6); MONO % 9.2 % (1.0-6.0); RED CELL DISTRIBUTION WIDTH 14.4 % (11.5-14.5); WHITE BLOOD COUNT 6.9 10^3/ul (4.5-11.0)
[2017-03-21 07:32] LABS: ALB/GLOB RATIO 1.4 (1.1-1.8); ALKALINE PHOSPHATASE 38 U/L (38-126); ALT/SGPT 25 U/L (7-56); AST/SGOT 24 U/L (17-59); BILIRUBIN,TOTAL 0.3 mg/dL (0.2-1.3); BLOOD UREA NITROGEN 14 mg/dL (7-21); CALCIUM 9.1 mg/dL (8.4-10.5); CARBON DIOXIDE 33 mmol/L (21-33); CHLORIDE 101 mmol/L (98-107); GFR AFRICAN-AMERICAN > 60; GLUCOSE,RANDOM 87 mg/dL (70-110); MAGNESIUM 1.6 mg/dL (1.7-2.2); PHOSPHOROUS 5.1 mg/dL (2.5-4.5); SODIUM 138 mmol/L (132-148); TOTAL PROTEIN 5.7 g/dL (5.8-8.3)
[2017-03-21 07:43] VITALS: O2SAT 98
--- NOTE | 2017-03-21 09:19 | CON ---
HISTORY OF PRESENT ILLNESS: The patient is a 41-year-old male, who identifies as a female with the name of Jesús, with a psychiatric history of schizoaffective disorder versus bipolar disorder as well as anxiety disorder. According to the patient, she has no history of psychiatric hospitalizations, and she is currently in treatment with her psychiatrist, Dr. Ortiz, for the past year and reportedly prescribed Lamictal 200 mg at bedtime, Klonopin daily p.r.n., Vistaril 50 mg daily p.r.n., Risperdal 1 mg daily, Cogentin 1 mg daily, and Ambien 10 mg daily p.r.n. The patient was brought in by EMS due to reported overdose as she was found with multiple empty bottles around her, including empty bottles of Ambien, 2 empty bottles of Klonopin, empty bottle of B12, and an empty bottle of baclofen. I met with the patient at bedside yesterday and my dictated note indicates that she was quite guarded and basically denied having any depression or stressors and then could not recollect the circumstances that led to her presentation. She denied that she was suicidal and that it was a suicide attempt. She could not give a logical reason why there were empty bottles around her, and when this provider requested to talk to her , the patient indicated that her did not have a cell phone or home phone number to contact her. Dr. Gunderson and I met with the patient together at bedside today. We explained to the patient that she is doing medically well; however, psychiatrically this provider still needs to clear her. I indicated the patient that I need her to obtain collateral contact with her in order to elucidate the circumstances of her presentation. The patient was quite reluctant to let me speak with her and was notably stalling in the presence of this provider and Dr. Gunderson. The patient kept saying that she was not sure if would pickup the phone, she could not find the number and that she asked her for permission for us to speak with her. Eventually, the patient led to this provider speak to her , Annia, after this provider stressed that [facility]'s screening would be called if I could not get anymore information. I spoke to Annia, at the number of #[phone] and Annia initially indicated that she did not know the circumstances of the patient's presentation. She indicated that the patient probably just fell asleep with the bottles around her. Annia indicated that the patient and her have been having a lot of difficulty in the relationship together and there have been conflicts recently. Annia goes on to say that she spent about one and a half days at her father's home prior to the overdose due to these conflicts. Annia indicated that she had been on 01/18; however, the patient had convinced her to get an because they could not financially afford to raise a child. I indicated Annia that it was my instinct belief that the patient tried to overdose due to her current stressors and Annia stated "trust her gut feeling." Annia then confirmed that the patient had a suicide attempt and that is what led to her presentation at the hospital. Annia indicated that she spoke with the patient at 5:00 p.m. the day that the patient overdosed and then tried to call her 8:00 p.m.; however, she was not picking up, so she called her friends to checkup on her, and her friend found the patient on the floor surrounded by empty pill bottles. Annia indicated that "it was a well known fact" that this was a suicide attempt. Annia indicated that they had a verbal argument the day prior in the hospital in front of the one-to-one and Annia stated that it was her feeling that the patient needs to stay in the hospital and at that point, the patient had shushed the patient so that one-to-one would not hear her statement. In return, Annia stated "it's not a secret, everyone knows why you are here." Annia felt that the patient would benefit from hospitalization; however, she fears the patient learning that she divulged the circumstances of the overdose prior to admission. Annia asked this provider to keep the source of this information a secret and not to tell the patient. Annia was very specific regarding this request. Of note, during today's evaluation with Dr. Gunderson again, the patient denied that this was a suicide attempt and she denied any depression. She denied any stressors, and she denied knowing why she was surrounded by pill bottles which appears to be *------*. Nyasia Cain MD
--- NOTE | 2017-03-21 12:31 | CP.PCM.PN ---
<Taiwo Ching - Last Filed: 03/21/17 16:56> Subjective - Date & Time of Evaluation Date of Evaluation: 03/21/17 Time of Evaluation: 06:00 - Subjective Subjective: Patient seen and examined at the bedside. Patient had 1 on 1 monitor in the room present. No acute events overnight. Patient Denies headaches, dizziness, chest pain, palpitations, sob, abdominal pain, urinary symptoms, or any other complaints. Objective - Vital Signs/Intake and Output Vital Signs (last 24 hours): Temp Pulse Resp BP Pulse Ox 98.1 F 81 18 121/81 98 03/21/17 07:30 03/21/17 07:30 03/21/17 07:30 03/21/17 07:30 03/21/17 07:30 - Medications Medications: Current Medications Acetaminophen/Butalbital/Caffeine (Fioricet) 1 tab PO Q4H PRN PRN Reason: Headache Last Admin: 03/19/17 11:19 Dose: 1 tab Baclofen (Lioresal) 10 mg PO TID PRN PRN Reason: Muscle spasm Last Admin: 03/19/17 17:14 Dose: 10 mg Benztropine Mesylate (Cogentin) 1 mg PO HS JOSEPHINE Last Admin: 03/20/17 21:22 Dose: 1 mg Cholecalciferol (Vitamin D) 1,000 iu PO DAILY JOSEPHINE Last Admin: 03/21/17 11:45 Dose: 1,000 iu Clonazepam (Klonopin) 1 mg PO DAILY PRN; Protocol PRN Reason: Anxiety Last Admin: 03/20/17 21:29 Dose: 1 mg Lamotrigine (Lamictal) 50 mg PO DAILY JOSEPHINE PRN Reason: Protocol Last Admin: 03/21/17 11:43 Dose: 50 mg Montelukast Sodium (Singulair) 10 mg PO HS JOSEPHINE Last Admin: 03/20/17 21:22 Dose: 10 mg Pantoprazole Sodium (Protonix Ec Tab) 40 mg PO 0600 JOSEPHINE Last Admin: 03/21/17 06:16 Dose: 40 mg Risperidone (Risperdal Tab) 1 mg PO HS JOSEPHINE PRN Reason: Protocol Last Admin: 03/20/17 21:22 Dose: 1 mg Zaleplon (Sonata) 5 mg PO HS PRN PRN Reason: Insomnia Last Admin: 03/20/17 21:22 Dose: 5 mg - Labs Labs: 03/21/17 06:56 03/21/17 06:56 PT 11.4 SECONDS (9.4-12.5) 03/17/17 23:30 INR 1.04 (0.93-1.08) 03/17/17 23:30 APTT 29.1 Seconds (25.1-36.5) 03/17/17 23:30 - Constitutional Appears: Non-toxic, No Acute Distress - Head Exam Head Exam: ATRAUMATIC, NORMAL INSPECTION, NORMOCEPHALIC - Eye Exam Eye Exam: EOMI, Normal appearance, PERRL - ENT Exam ENT Exam: Normal Exam - Neck Exam Neck Exam: Normal Inspection - Respiratory Exam Respiratory Exam: Clear to Ausculation Bilateral, NORMAL BREATHING PATTERN - Cardiovascular Exam Cardiovascular Exam: REGULAR RHYTHM, +S1, +S2 - GI/Abdominal Exam GI & Abdominal Exam: Soft, Normal Bowel Sounds. absent: Tenderness - Extremities Exam Extremities Exam: Normal Inspection - Neurological Exam Neurological Exam: Alert, Awake, Oriented x3 - Psychiatric Exam Psychiatric exam: Normal Affect, Normal Mood - Skin Skin Exam: Normal Color Assessment and Plan - Assessment and Plan (Free Text) Assessment: 41 M with PMHx of HTN, seizures, BPH, asthma, hyperlipidemia, GERD, headaches, bipolar disorder, schizoaffective, and gender identity disorder who presented to the ED with AMS 2/2 polypharmacy admitted to for evaluation of possible overdose attempt and psychiatric evaluation. Plan: 1. Altered Mental Status 2/2 polypharmacy (resolved) -Presented with toxic overdose of psych and antidepressants -Currently Awake Alert and Orientated x 3 -CT head negative for intracranial pathology -UTox notable for Benzos, Barbs, Canabannoids -Hx of seizures, seizure precautions -Patient/patient partner explained in detail about multiple drug use; Polypharmacy is a cause of lethargy. -Patient is strongly advised to stop taking multiple medications. -Continue 1:1 sitter for safety -Denies intentional drug overdose, denies suicidal ideation. Doesn't wish to go to psych floor -Psych consulted: Dr. Sierra: will [place] [facility] [place], continue 1:1 for suicide precaution, continue current meds for [facility] [place] pt's [place] [phone] for collaterals -F/U HIV, hep panel 2. Dysuria -UA on admission was negative -Repeat UA and urine cx negative -Patient informed likely 2/2 valdovinos catheter placement 3. Headaches -Fiorocet prn headache 4. Hx of Bipolar disorder, schizoaffective disorder, gender dysphoria -On cogentin, Lamictal, klonopin, resperidone -Psych consulted, f/u recommendations 5. Hx of Hypertension -Currently normatensive -Continue to monitor GI/DVT ppx -Protonix -SCDs <JessicaIliana B - Last Filed: 03/23/17 08:38> Objective - Vital Signs/Intake and Output Vital Signs (last 24 hours): Temp Pulse Resp BP Pulse Ox 98.5 F 79 18 105/64 98 03/21/17 16:00 03/21/17 16:00 03/21/17 16:00 03/21/17 16:00 03/21/17 16:00 - Labs Labs: 03/22/17 06:44 03/22/17 06:44 PT 11.4 SECONDS (9.4-12.5) 03/17/17 23:30 INR 1.04 (0.93-1.08) 03/17/17 23:30 APTT 29.1 Seconds (25.1-36.5) 03/17/17 23:30 Attending/Attestation - Attestation I have personally seen and examined this patient.: Yes I have fully participated in the care of the patient.: Yes I have reviewed all pertinent clinical information, including history, physical exam and plan: Yes Notes (Text): I have seen and examined the patient with the resident. Agree with the above note with the following additions/ exceptions: Briefly this is 41 year old male with history of HTN, seizures, asthma, hyperlipidemia, GERD, migraine headache , bipolar disorder, schizoaffective, and gender identity disorder who presented to the ED with AMS most likely due to polypharmacy. Patient denies any complaints at this time and wants to go home. Discussed with Dr Sierra in detail. [facility] screen[facility] refused to accept the patient for involuntary commitment. Psychiatrist advised for a second evaluation by [facility] who will come today. Patient denies any suicidal ideation at this time however he remains very secretive and is not willing to open up to have discussion. He is not allowed to leave AMA at this time. Upon discharge the patient will follow-up with PMD . Patient needs close follow up with psychiatrist Angel Adkins. Dr Iliana Lopez
--- NOTE | 2017-03-21 16:30 | PCM.PYCHPN ---
Psychiatric Progress Note - Psychiatric Progress Note Patient seen today, length of contact: 45min Patient Chief Complaint: "I am perfect" Diagnostic Results: 03/21/17 06:56 03/21/17 06:56 Lab Results 03/21/17 06:56: Sodium 138, Potassium 4.0, Chloride 101, Carbon Dioxide 33, Anion Gap 8 L, BUN 14, Creatinine 0.6 L, Est GFR ( Amer) > 60, Est GFR ( Non-Af Amer) > 60, Random Glucose 87, Calcium 9.1, Phosphorus 5.1 H, Magnesium 1.6 L, Total Bilirubin 0.3, AST 24, ALT 25, Alkaline Phosphatase 38 D, Total Protein 5.7 L, Albumin 3.3, Globulin 2.4, Albumin/Globulin Ratio 1.4 03/21/17 06:56: WBC 6.9, RBC 4.00, Hgb 11.7 L D, Hct 35.6 L, MCV 89.0, MCH 29.3 , MCHC 32.9, RDW 14.4, Plt Count 198, MPV 9.2, Gran % 45.4 L, Lymph % (Auto) 39.4 H, [place] % (Auto) 9.2 H, Eos % (Auto) 5.7 H, Baso % (Auto) 0.3, Gran # 3.12 , Lymph # 2.7, [place] # 0.6, Eos # 0.4, Baso # 0.02 03/20/17 07:30: HIV 1&2 Antibody Screen Negative 03/20/17 07:30: Hepatitis A IgM Ab Negative, Hep Bs Antigen Negative, Hep B Core IgM Ab Negative, Hepatitis C Antibody Negative 03/20/17 07:30: Sodium 140, Potassium 3.9, Chloride 102, Carbon Dioxide 31, Anion Gap 11, BUN 11, Creatinine 0.6 L, Est GFR ( Amer) > 60, Est GFR ( Non-Af Amer) > 60, Random Glucose 106, Calcium 9.6, Phosphorus 3.1, Magnesium 1.8, Total Bilirubin 0.4, AST 28, ALT 28, Alkaline Phosphatase 58, Total Protein 7.0, Albumin 4.2, Globulin 2.7, Albumin/Globulin Ratio 1.6 03/20/17 07:30: WBC 7.8 D, RBC 4.62, Hgb 13.7 L D, Hct 40.9 L, MCV 88.5, MCH 29.7, MCHC 33.5, RDW 14.6 H, Plt Count 223, MPV 9.4, Gran % 39.1 L, Lymph % ( Auto) 49.2 H, [place] % (Auto) 8.3 H, Eos % (Auto) 3.1, Baso % (Auto) 0.3, Gran # 3.06, Lymph # 3.8 H, [place] # 0.7 H, Eos # 0.2, Baso # 0.02 03/19/17 12:47: Urine Color Light yellow, Urine Appearance Clear, Urine pH 7.0, Ur Specific [place] 1.015, Urine Protein Negative, Urine Glucose (UA) Negative, Urine Ketones Negative, Urine Blood Negative, Urine Nitrate Negative, Urine Bilirubin Negative, Urine Urobilinogen 0.2, Ur Leukocyte Esterase Negative 03/19/17 05:00: Sodium 141, Potassium 3.8, Chloride 109 H, Carbon Dioxide 28, Anion Gap 8 L, BUN 10, Creatinine 0.6 L, Est GFR ( Amer) > 60, Est GFR ( Non-Af Amer) > 60, Random Glucose 98, Calcium 8.2 L, Phosphorus 2.8, Magnesium 1.7, Total Bilirubin 0.3, AST 25, ALT 21, Alkaline Phosphatase 40, Total Protein 5.4 L, Albumin 3.1, Globulin 2.3, Albumin/Globulin Ratio 1.3 03/19/17 05:00: WBC 6.4 D, RBC 3.84, Hgb 11.2 L, Hct 34.1 L, MCV 88.8, MCH 29.2 , MCHC 32.8, RDW 14.6 H, Plt Count 184, MPV 9.4, Gran % 52.8, Lymph % (Auto) 32.9, [place] % (Auto) 10.1 H, Eos % (Auto) 3.9, Baso % (Auto) 0.3, Gran # 3.39, Lymph # 2.1, [place] # 0.7 H, Eos # 0.3, Baso # 0.02 03/18/17 14:00: Sodium 143, Potassium 3.8, Chloride 110 H, Carbon Dioxide 26, Anion Gap 11, BUN 7, Creatinine 0.6 L, Est GFR ( Amer) > 60, Est GFR (Non -Af Amer) > 60, Random Glucose 91, Calcium 8.7, Total Bilirubin 0.3, AST 26, ALT 30, Alkaline Phosphatase 48, Troponin I < 0.01, Total Protein 5.8, Albumin 3.5, Globulin 2.4, Albumin/Globulin Ratio 1.5 03/18/17 08:00: WBC 8.7, RBC 4.30, Hgb 12.5 L, Hct 38.1 L, MCV 88.6, MCH 29.1, MCHC 32.8, RDW 14.4, Plt Count 188, MPV 9.2, Gran % 66.1, Lymph % (Auto) 22.0, [place] % (Auto) 9.2 H, Eos % (Auto) 2.6, Baso % (Auto) 0.1, Gran # 5.74, Lymph # 1.9, [place] # 0.8 H, Eos # 0.2, Baso # 0.01 03/18/17 07:50: Sodium 143, Potassium 4.0, Chloride 109 H, Carbon Dioxide 28, Anion Gap 10, BUN 7, Creatinine 0.6 L, Est GFR ( Amer) > 60, Est GFR (Non -Af Amer) > 60, Random Glucose 95, Calcium 8.7, Phosphorus 2.6, Magnesium 1.8, Total Bilirubin 0.4, AST 30, ALT 28, Alkaline Phosphatase 55, Troponin I < 0.01 , Total Protein 5.9, Albumin 3.5, Globulin 2.4, Albumin/Globulin Ratio 1.5 03/18/17 00:47: pCO2 54 H, pO2 255.0 H, HCO3 27.8, ABG pH 7.32 L, ABG Total CO2 29.5 H, ABG O2 Saturation 100.1 H, ABG O2 Content 16.4, ABG Base Excess 0.9, ABG Hemoglobin 11.7, ABG Carboxyhemoglobin 3.1 H, POC ABG HHb (Measured) -0.1 L , ABG Methemoglobin 1.1, ABG O2 Capacity 16.4, Hgb O2 Saturation 95.8, FiO2 32.0 03/18/17 00:05: Urine Opiates Screen Negative, Urine Methadone Screen Negative, Ur Barbiturates Screen Positive H, Ur Phencyclidine Scrn Negative, Ur Amphetamines Screen Negative, U Benzodiazepines Scrn Positive H, U Oth Cocaine Metabols Negative, U Cannabinoids Screen Positive H 03/18/17 00:05: Urine Color Yellow, Urine Appearance Clear, Urine pH 6.0, Ur Specific [place] 1.015, Urine Protein Negative, Urine Glucose (UA) Negative, Urine Ketones Trace H, Urine Blood Negative, Urine Nitrate Negative, Urine Bilirubin Negative, Urine Urobilinogen 0.2, Ur Leukocyte Esterase Negative 03/17/17 23:55: pO2 152 H, VBG pH 7.34, VBG pCO2 51.0, VBG HCO3 27.5, VBG Total CO2 29.1 H, VBG O2 Sat (Calc) 99.6 H, VBG Base Excess 0.9, VBG Potassium 3.1 L, Glucose 92, Lactate 0.7, FiO2 21.0, Sodium 141.0, Chloride 112.0 H, Venous Blood Potassium 3.1 L 03/17/17 23:30: WBC 8.3 D, RBC 4.04, Hgb 12.0 L, Hct 35.5 L, MCV 87.9 D, MCH 29.7, MCHC 33.8, RDW 14.2, Plt Count 200, MPV 9.6, Gran % 77.7 H, Lymph % (Auto ) 13.3 L, [place] % (Auto) 7.3 H, Eos % (Auto) 1.6, Baso % (Auto) 0.1, Gran # 6.46 , Lymph # 1.1 L, [place] # 0.6, Eos # 0.1, Baso # 0.01 03/17/17 23:30: Alcohol, Quantitative < 10 03/17/17 23:30: Salicylates < 1 L, Acetaminophen < 10.0 L 03/17/17 23:30: Sodium 141, Potassium 3.3 L, Chloride 107, Carbon Dioxide 29, Anion Gap 8 L, BUN 9, Creatinine 0.6 L, Est GFR ( Amer) > 60, Est GFR ( Non-Af Amer) > 60, Random Glucose 99, Calcium 8.7, Phosphorus 4.0, Magnesium 1.7 , Total Bilirubin 0.3, AST 40, ALT 31, Alkaline Phosphatase 51, Lactate Dehydrogenase 427, Total Creatine Kinase 540 H, CK-MB (CK-2) 3.3, CK-MB (CK-2) % Cancelled, Troponin I < 0.01, Total Protein 6.1, Albumin 3.7, Globulin 2.4, Albumin/Globulin Ratio 1.5 03/17/17 23:30: PT 11.4, INR 1.04, APTT 29.1 Vital Signs Temp Pulse Pulse Pulse Resp BP Pulse Ox 03/21/17 13:33 98 03/21/17 07:30 98.1 F 81 18 121/81 98 03/21/17 00:00 98 F 72 18 117/74 97 03/20/17 15:38 97 F L 70 18 120/87 95 03/20/17 14:24 98 03/20/17 07:00 98 F 65 18 120/72 98 03/20/17 00:00 97.7 F 68 18 119/85 97 03/19/17 15:36 98 F 67 22 127/74 97 03/19/17 09:00 98.2 F 03/19/17 06:55 133/76 03/19/17 05:00 98 F 03/19/17 04:00 122/73 100 03/19/17 03:50 71 25 H 99 03/19/17 03:45 60 23 03/19/17 03:40 63 18 03/19/17 03:39 64 31 H 03/19/17 03:38 63 28 H 03/19/17 03:37 62 18 03/19/17 03:36 65 16 03/19/17 03:35 67 26 H 03/19/17 03:34 64 19 03/19/17 03:33 61 19 03/19/17 03:32 61 28 H 03/19/17 03:31 62 24 03/19/17 03:30 61 24 03/19/17 03:29 59 L 23 03/19/17 03:28 62 21 03/19/17 03:27 63 25 H 03/19/17 03:26 62 22 03/19/17 03:25 62 23 03/19/17 03:24 63 18 03/19/17 03:23 61 03/19/17 03:22 61 13 03/19/17 03:21 63 23 03/19/17 03:20 64 15 03/19/17 03:19 64 25 H 03/19/17 03:18 62 20 03/19/17 03:17 62 21 03/19/17 03:16 63 30 H 03/19/17 02:28 63 18 03/19/17 02:27 62 17 03/19/17 02:26 63 18 03/19/17 02:25 63 18 03/19/17 02:24 63 19 03/19/17 02:23 62 18 03/19/17 02:22 61 16 03/19/17 02:21 62 16 03/19/17 02:20 63 17 03/19/17 02:19 63 18 03/19/17 02:18 62 19 03/19/17 02:17 62 18 03/19/17 02:16 65 19 03/19/17 02:15 64 18 03/19/17 02:14 64 16 03/19/17 02:13 62 18 03/19/17 02:12 64 23 03/19/17 02:11 62 19 03/19/17 02:10 62 18 03/19/17 02:09 61 18 03/19/17 02:08 62 24 03/19/17 02:07 64 18 03/19/17 02:06 65 17 03/19/17 02:05 61 19 03/19/17 02:04 62 20 03/19/17 02:03 62 22 03/19/17 00:00 97.2 F L 03/18/17 22:00 74 03/18/17 20:20 71 98 03/18/17 20:10 74 21 98 03/18/17 20:00 84 42 H 123/60 98 03/18/17 19:50 77 98 03/18/17 19:40 70 15 96 03/18/17 19:30 71 20 97 03/18/17 19:20 71 12 97 03/18/17 19:10 72 26 H 97 03/18/17 19:00 75 12 112/60 98 03/18/17 18:50 74 18 99 03/18/17 18:40 80 100 03/18/17 18:30 74 36 H 98 03/18/17 18:20 76 19 03/18/17 18:19 76 20 03/18/17 18:18 76 20 03/18/17 18:17 76 18 03/18/17 18:16 74 17 03/18/17 18:15 75 19 03/18/17 18:10 78 34 H 98 03/18/17 18:01 73 03/18/17 18:00 74 19 104/71 93 L 03/18/17 17:50 79 16 88 L 03/18/17 17:43 73 17 03/18/17 17:42 79 35 H 03/18/17 17:41 76 16 03/18/17 17:40 71 21 03/18/17 17:38 75 25 H 03/18/17 17:37 76 18 03/18/17 17:36 75 16 03/18/17 17:33 72 03/18/17 17:32 72 11 L 03/18/17 17:30 81 94 L 03/18/17 17:28 74 19 03/18/17 17:21 72 12 03/18/17 17:20 70 15 03/18/17 17:19 71 15 03/18/17 17:13 72 18 03/18/17 17:12 72 17 03/18/17 17:10 77 19 97 03/18/17 17:00 72 115/64 97 03/18/17 16:50 69 16 98 03/18/17 16:40 72 21 99 03/18/17 16:30 73 19 99 03/18/17 16:20 73 21 98 03/18/17 16:10 74 15 99 03/18/17 16:00 73 15 115/76 98 03/18/17 15:50 80 27 H 100 03/18/17 15:40 79 33 H 99 03/18/17 15:30 75 18 99 03/18/17 15:20 75 16 99 03/18/17 15:10 75 15 98 03/18/17 15:00 76 21 115/67 100 03/18/17 14:50 74 15 100 03/18/17 14:40 76 20 100 03/18/17 14:30 72 97 03/18/17 14:20 74 98 03/18/17 14:10 69 16 100 03/18/17 14:00 71 14 106/69 100 03/18/17 13:50 73 25 H 100 03/18/17 13:40 72 17 100 03/18/17 13:30 74 23 100 03/18/17 13:20 96 H 21 100 03/18/17 12:00 98.2 F 90 03/18/17 09:01 67 11 L 116/80 100 03/18/17 09:00 65 25 H 100 03/18/17 08:50 56 L 11 L 100 03/18/17 08:40 57 L 10 L 100 03/18/17 08:30 57 L 11 L 100 03/18/17 08:20 59 L 11 L 100 03/18/17 08:10 65 16 100 03/18/17 08:00 97.9 F 71 12 119/74 100 03/18/17 07:50 73 15 100 03/18/17 07:40 77 17 100 03/18/17 07:30 74 18 100 03/18/17 07:20 73 18 94 L 03/18/17 07:10 77 14 100 03/18/17 07:00 85 17 132/89 100 03/18/17 06:50 72 15 100 03/18/17 06:40 54 L 12 100 03/18/17 06:30 54 L 13 100 03/18/17 06:20 57 L 11 L 100 03/18/17 06:10 60 12 100 03/18/17 06:00 57 L 12 123/83 100 03/18/17 05:50 55 L 11 L 100 03/18/17 05:40 56 L 11 L 100 03/18/17 05:30 56 L 11 L 100 03/18/17 05:20 55 L 11 L 100 03/18/17 05:10 54 L 12 100 03/18/17 05:00 57 L 12 121/81 100 03/18/17 04:50 57 L 13 100 03/18/17 04:40 62 14 100 03/18/17 04:30 62 11 L 100 03/18/17 04:21 69 03/18/17 04:20 67 36 H 03/18/17 04:19 66 20 03/18/17 04:18 67 17 03/18/17 04:17 63 12 03/18/17 04:16 68 15 03/18/17 04:15 71 25 H 03/18/17 04:14 77 15 03/18/17 04:13 76 15 03/18/17 04:12 57 L 11 L 03/18/17 04:11 55 L 11 L 03/18/17 04:10 56 L 11 L 03/18/17 04:09 56 L 11 L 03/18/17 04:08 56 L 10 L 03/18/17 04:07 56 L 11 L 03/18/17 04:06 56 L 12 03/18/17 04:05 57 L 11 L 03/18/17 04:04 56 L 10 L 03/18/17 04:03 56 L 11 L 03/18/17 04:02 56 L 10 L 03/18/17 04:01 57 L 10 L 03/18/17 04:00 123/82 03/18/17 03:59 57 L 10 L 03/18/17 03:58 55 L 10 L 03/18/17 03:57 56 L 10 L 03/18/17 03:56 57 L 11 L 03/18/17 03:55 57 L 11 L 03/18/17 03:54 56 L 10 L 03/18/17 03:53 57 L 10 L 03/18/17 03:52 55 L 11 L 03/18/17 03:51 55 L 10 L 03/18/17 03:50 56 L 11 L 03/18/17 03:49 55 L 11 L 03/18/17 03:48 56 L 10 L 03/18/17 03:00 54 L 18 107/71 98 03/18/17 02:22 97.5 F L 57 L 57 L 57 L 18 127/83 03/18/17 02:04 97.5 F L 57 L 20 127/83 98 03/18/17 01:41 95.8 F L 03/18/17 01:33 95.8 F L 03/18/17 01:11 59 L 16 96/56 L 100 03/18/17 00:39 94.2 F L 03/18/17 00:15 58 L 12 103/59 L 99 03/17/17 23:30 57 L 12 94/59 L 99 03/17/17 22:32 62 16 127/82 97 03/17/17 22:27 88 30 H 246/110 H 100 DSM 5 Symptoms Update: shortly patient is 41 year old male, Gender, Patient Was Brought in to the Hospital Status Post Overdose on Medications, Patient Was Found Unconscious Next to the Empty Bottles of Pills Including All Psychotropic Medications. pt was admitted to ICU, was downgraded to the Medical side. Dr. Cain evaluated pt over the weekend, screening process was initiated, patient was not found to be not committable. As per Dr. Cain recommendation second screening needs to be initiated (this technical publications writer is in agreement with that). please see initial evaluation for more detailed information. pt superficially corporative, patient reported that everything is fine, patient reported that she has "best relationship ever", patient was secretive in regards to the circumstances of her overdose on medications, was making up stories that she was feeling the pillbox and she had "pseudoseizures, I don't know if he is aware of that", patient reported that she does not remember what happened "but I remember that I was clenching my teeth". pt was minimizing, secretive, but gave verbal consent to speak to his . as per Annia (pt's ) [phone], they have a rough time, Annia reported that she had an and that is why patient was very impulsive and affected with that that bad news. Annia also reported that pt most likely wanted to end up his life. at the same time as per Annia "I told her to lie about seizure thing, because she did not want to be committed". Annia expressed the highest concern about pt's safety. Annia requested this info should be not disclosed to the PT. when this technical publications writer let pt know that second screening will be initiated, pt became very angry, was starring at this technical publications writer, made statement "you want just to throw me to other hospital and make moneys on me". As per staff patient is dramatic, but no agitation or aggression, compliant with the medications. Mental status examination: Patient presented to have very bright makeup on, masculine appearance, wears female dress, guarded, secretive, providing inconsistent story. pt's affect was constricted, mood "I am great", thought process coherent, thought content pt is mildly grandiose "I was willy not with the silver spoon in my mouth but with the john one, I had everything in this world, but I choose to leave that life , pt denied si/hi, but pt is very guarded, changing stories, I/J limited, impulsed are unpredictable. Impression: r/o MDD r/o bipolar r/o borderline personality disorder r/o gender identity disorder Plan: will call [facility] again for screening will continue 1:1 for suicide precaution will continue current meds for [facility] please call pt's [place] [phone] for collaterals staff was educated not to d/c pt in the middle of the night if pt will be not committed thank you for letting me participate in care of your pt assessment, collaterals, took more than 45min Medication Change: No Medical Record Reviewed: No
[2017-03-21 16:35] VITALS: BP 105/64; PULSE 79; TEMP 98.5
[2017-03-22] MEDS: Pantoprazole 40 mg EC Tab PO SCH (07:05)
[2017-03-22 07:09] LABS: ALB/GLOB RATIO 1.7 (1.1-1.8); ALKALINE PHOSPHATASE 47 U/L (38-126); ALT/SGPT 29 U/L (7-56); AST/SGOT 24 U/L (17-59); BASO # 0.02 K/mm3 (0.0-2.0); BASO % 0.3 % (0.0-3.0); BILIRUBIN,TOTAL 0.3 mg/dL (0.2-1.3); BLOOD UREA NITROGEN 12 mg/dL (7-21); CALCIUM 9.4 mg/dL (8.4-10.5); CARBON DIOXIDE 31 mmol/L (21-33); CHLORIDE 101 mmol/L (95-110); EOS # 0.4 (0.0-0.7); EOS % 5.7 % (1.5-5.0); GFR AFRICAN-AMERICAN > 60; GLUCOSE,RANDOM 86 mg/dL (70-110); GRAN # 3.12 (1.4-6.5); GRAN % 45.8 % (50.0-68.0); HEMATOCRIT 39.4 % (42.0-52.0); LYMPH # 2.7 (1.2-3.4); LYMPH % 39.1 % (22.0-35.0); MAGNESIUM 1.8 mg/dL (1.7-2.2); MEAN CELL VOLUME 87.9 fl (80.0-105.0); MEAN PLATELET VOLUME 9.1 fl (7.0-11.0); MONO # 0.6 (0.1-0.6); MONO % 9.1 % (1.0-6.0); PHOSPHOROUS 4.3 mg/dL (2.5-4.5); POTASSIUM 4.2 mmol/L (3.6-5.0); RED CELL DISTRIBUTION WIDTH 14.1 % (11.5-14.5); SODIUM 138 mmol/L (132-148); TOTAL PROTEIN 6.5 g/dL (5.8-8.3); WHITE BLOOD COUNT 6.8 10^3/ul (4.5-11.0)
--- NOTE | 2017-03-22 13:56 | CP.PCM.PCO ---
Physician Communication Note - Physician Communication Note Physician Communication Note: pt was screened by [facility] twice, was found to be not commitable
--- NOTE | 2017-03-22 15:27 | CP.PCM.DIS ---
<Taiwo Ching - Last Filed: 03/23/17 13:13> Provider - Provider Date of Admission: 03/18/17 00:29 Attending physician: Iliana Lopez MD Time Spent in preparation of Discharge (in minutes): 70 Hospital Course - Lab Results Lab Results: Micro Results 03/19/17 11:05 Urine,Clean Catch Urine Culture - Final No Growth (<1,000 CFU/ML) 03/18/17 02:33 Naris MRSA Culture (Admit) - Final MRSA NOT DETECTED Most Recent Lab Values WBC 6.8 10^3/ul (4.5-11.0) 03/22/17 06:44 RBC 4.48 10^6/uL (3.5-6.1) 03/22/17 06:44 Hgb 13.0 g/dL (14.0-18.0) L 03/22/17 06:44 Hct 39.4 % (42.0-52.0) L 03/22/17 06:44 MCV 87.9 fl (80.0-105.0) 03/22/17 06:44 MCH 29.0 pg (25.0-35.0) 03/22/17 06:44 MCHC 33.0 g/dl (31.0-37.0) 03/22/17 06:44 RDW 14.1 % (11.5-14.5) 03/22/17 06:44 Plt Count 214 10^3/uL (120.0-450.0) 03/22/17 06:44 MPV 9.1 fl (7.0-11.0) 03/22/17 06:44 Gran % 45.8 % (50.0-68.0) L 03/22/17 06:44 Lymph % (Auto) 39.1 % (22.0-35.0) H 03/22/17 06:44 [place] % (Auto) 9.1 % (1.0-6.0) H 03/22/17 06:44 Eos % (Auto) 5.7 % (1.5-5.0) H 03/22/17 06:44 Baso % (Auto) 0.3 % (0.0-3.0) 03/22/17 06:44 Gran # 3.12 (1.4-6.5) 03/22/17 06:44 Lymph # 2.7 (1.2-3.4) 03/22/17 06:44 [place] # 0.6 (0.1-0.6) 03/22/17 06:44 Eos # 0.4 (0.0-0.7) 03/22/17 06:44 Baso # 0.02 K/mm3 (0.0-2.0) 03/22/17 06:44 PT 11.4 SECONDS (9.4-12.5) 03/17/17 23:30 INR 1.04 (0.93-1.08) 03/17/17 23:30 APTT 29.1 Seconds (25.1-36.5) 03/17/17 23:30 pCO2 54 mm/Hg (35-45) H 03/18/17 00:47 pO2 255.0 mm/Hg (80-100) H 03/18/17 00:47 HCO3 27.8 mmol/L (21-28) 03/18/17 00:47 ABG pH 7.32 (7.35-7.45) L 03/18/17 00:47 ABG Total CO2 29.5 mmol.L (22-28) H 03/18/17 00:47 ABG O2 Saturation 100.1 % (95-98) H 03/18/17 00:47 ABG O2 Content 16.4 ML/dl (15-23) 03/18/17 00:47 ABG Base Excess 0.9 mmol/L (-2.0-3.0) 03/18/17 00:47 ABG Hemoglobin 11.7 g/dL (11.7-17.4) 03/18/17 00:47 ABG Carboxyhemoglobin 3.1 % (0.5-1.5) H 03/18/17 00:47 POC ABG HHb (Measured) -0.1 % (0-5) L 03/18/17 00:47 ABG Methemoglobin 1.1 % (0.0-3.0) 03/18/17 00:47 ABG O2 Capacity 16.4 mL/dl (16-24) 03/18/17 00:47 VBG pH 7.34 (7.32-7.43) 03/17/17 23:55 VBG pCO2 51.0 (40-60) 03/17/17 23:55 VBG HCO3 27.5 mmol/l (21-28) 03/17/17 23:55 VBG Total CO2 29.1 mmol.L (22-28) H 03/17/17 23:55 VBG O2 Sat (Calc) 99.6 % (40-65) H 03/17/17 23:55 VBG Base Excess 0.9 mmol/L (0.0-2.0) 03/17/17 23:55 VBG Potassium 3.1 mmol/L (3.6-5.2) L 03/17/17 23:55 Hgb O2 Saturation 95.8 % (95.0-98.0) 03/18/17 00:47 Sodium 141.0 mmol/L (132-148) 03/17/17 23:55 Chloride 112.0 mmol/L (98-107) H 03/17/17 23:55 Glucose 92 mg/dl (75-110) 03/17/17 23:55 Lactate 0.7 mmol/L (0.7-2.1) 03/17/17 23:55 FiO2 32.0 % 03/18/17 00:47 Sodium 138 mmol/L (132-148) 03/22/17 06:44 Potassium 4.2 mmol/L (3.6-5.0) 03/22/17 06:44 Chloride 101 mmol/L (95-110) 03/22/17 06:44 Carbon Dioxide 31 mmol/L (21-33) 03/22/17 06:44 Anion Gap 10 (10-20) 03/22/17 06:44 BUN 12 mg/dL (7-21) 03/22/17 06:44 Creatinine 0.5 mg/dL (0.8-1.5) L 03/22/17 06:44 Est GFR ( Amer) > 60 03/22/17 06:44 Est GFR (Non-Af Amer) > 60 03/22/17 06:44 Random Glucose 86 mg/dL (70-110) 03/22/17 06:44 Calcium 9.4 mg/dL (8.4-10.5) 03/22/17 06:44 Phosphorus 4.3 mg/dL (2.5-4.5) 03/22/17 06:44 Magnesium 1.8 mg/dL (1.7-2.2) 03/22/17 06:44 Total Bilirubin 0.3 mg/dL (0.2-1.3) 03/22/17 06:44 AST 24 U/L (17-59) 03/22/17 06:44 ALT 29 U/L (7-56) 03/22/17 06:44 Alkaline Phosphatase 47 U/L (38-126) 03/22/17 06:44 Lactate Dehydrogenase 427 U/L (333-699) 03/17/17 23:30 Total Creatine Kinase 540 U/L (35-230) H 03/17/17 23:30 CK-MB (CK-2) 3.3 ng/mL (0.0-3.6) 03/17/17 23:30 CK-MB (CK-2) % Cancelled 03/17/17 23:30 Troponin I < 0.01 ng/mL 03/18/17 14:00 Total Protein 6.5 g/dL (5.8-8.3) 03/22/17 06:44 Albumin 4.1 g/dL (3.0-4.8) 03/22/17 06:44 Globulin 2.4 gm/dL 03/22/17 06:44 Albumin/Globulin Ratio 1.7 (1.1-1.8) 03/22/17 06:44 Venous Blood Potassium 3.1 mmol/L (3.6-5.2) L 03/17/17 23:55 Urine Color Light yellow (YELLOW) 03/19/17 12:47 Urine Appearance Clear (CLEAR) 03/19/17 12:47 Urine pH 7.0 (4.7-8.0) 03/19/17 12:47 Ur Specific [place] 1.015 (1.005-1.035) 03/19/17 12:47 Urine Protein Negative mg/dL (<30 mg/dL) 03/19/17 12:47 Urine Glucose (UA) Negative mg/dL (NEGATIVE) 03/19/17 12:47 Urine Ketones Negative mg/dL (NEGATIVE) 03/19/17 12:47 Urine Blood Negative (NEGATIVE) 03/19/17 12:47 Urine Nitrate Negative (NEGATIVE) 03/19/17 12:47 Urine Bilirubin Negative (NEGATIVE) 03/19/17 12:47 Urine Urobilinogen 0.2 E.U./dL (<1 E.U./dL) 03/19/17 12:47 Ur Leukocyte Esterase Negative Xena/uL (NEGATIVE) 03/19/17 12:47 Salicylates < 1 mg/dL (2.0-20.0) L 03/17/17 23:30 Urine Opiates Screen Negative (NEGATIVE) 03/18/17 00:05 Urine Methadone Screen Negative (NEGATIVE) 03/18/17 00:05 Acetaminophen < 10.0 ug/ml (10.0-20.0) L 03/17/17 23:30 Ur Barbiturates Screen Positive (NEGATIVE) H 03/18/17 00:05 Ur Phencyclidine Scrn Negative (NEGATIVE) 03/18/17 00:05 Ur Amphetamines Screen Negative (NEGATIVE) 03/18/17 00:05 U Benzodiazepines Scrn Positive (NEGATIVE) H 03/18/17 00:05 U Oth Cocaine Metabols Negative (NEGATIVE) 03/18/17 00:05 U Cannabinoids Screen Positive (NEGATIVE) H 03/18/17 00:05 Alcohol, Quantitative < 10 mg/dL (0-10) 03/17/17 23:30 Hepatitis A IgM Ab Negative (NEGATIVE) 03/20/17 07:30 Hep Bs Antigen Negative (NEGATIVE) 03/20/17 07:30 Hep B Core IgM Ab Negative (NEGATIVE) 03/20/17 07:30 Hepatitis C Antibody Negative (NEGATIVE) 03/20/17 07:30 HIV 1&2 Antibody Screen Negative (NEGATIVE) 03/20/17 07:30 - Hospital Course Hospital Course: 41 M with PMHx of HTN, seizures, BPH, asthma, hyperlipidemia, GERD, headaches, bipolar disorder, schizoaffective, and gender identity disorder who presented to the ED with AMS 2/2 polypharmacy admitted to for evaluation of possible overdose attempt and psychiatric evaluation. Psychiatry medicine were started as per psychiatry. CT head was negative for intracranial pathology. UDS was obtained and positive for Benzos, Barbs, Canabannoids. He was placed on seizure precautions. Patient/patient partner explained in detail about multiple drug use. 1:1 sitter was ordered. Psychology was consulted: Dr. Sierra: who called [facility] again for screening, continued 1:1 for suicide precaution, continued medications. 2nd opinion was ordered from [facility]. Hepatitis panel and HIV text were ordered. UA was also done, medication was given for headache. Patient then proceeded to want to leave and sign out AMA, he was told of all the risk associated with denying medical advice and treatment, was in agreement and decided to leave. He signed AMA papers and left for home. Discharge Exam - Head Exam Head Exam: ATRAUMATIC, NORMAL INSPECTION, NORMOCEPHALIC - Eye Exam Eye Exam: Normal appearance, PERRL Pupil Exam: NORMAL ACCOMODATION, PERRL - ENT Exam ENT Exam: Normal Exam - Neck Exam Neck exam: Normal Inspection - Respiratory Exam Respiratory Exam: Clear to PA & Lateral, NORMAL BREATHING PATTERN, UNREMARKABLE - Cardiovascular Exam Cardiovascular Exam: REGULAR RHYTHM, +S1, +S2 - GI/Abdominal Exam GI & Abdominal Exam: Normal Bowel Sounds - Neurological Exam Neurological exam: Alert, Oriented x3 - Psychiatric Exam Psychiatric exam: Flat Affect - Skin Skin Exam: Normal Color, Warm Discharge Plan - Follow Up Plan Condition: CRITICAL Disposition: AGAINST MEDICAL ADVICE Additional Instructions: Patient signed out AMA, can return if any medical issues arise once again. Continue home medications. <Iliana Lopez - Last Filed: 03/23/17 16:17> Provider - Provider Date of Admission: 03/18/17 00:29 Attending physician: Iliana Lopez MD Hospital Course - Lab Results Lab Results: Micro Results 03/19/17 11:05 Urine,Clean Catch Urine Culture - Final No Growth (<1,000 CFU/ML) 03/18/17 02:33 Naris MRSA Culture (Admit) - Final MRSA NOT DETECTED Most Recent Lab Values WBC 6.8 10^3/ul (4.5-11.0) 03/22/17 06:44 RBC 4.48 10^6/uL (3.5-6.1) 03/22/17 06:44 Hgb 13.0 g/dL (14.0-18.0) L 03/22/17 06:44 Hct 39.4 % (42.0-52.0) L 03/22/17 06:44 MCV 87.9 fl (80.0-105.0) 03/22/17 06:44 MCH 29.0 pg (25.0-35.0) 03/22/17 06:44 MCHC 33.0 g/dl (31.0-37.0) 03/22/17 06:44 RDW 14.1 % (11.5-14.5) 03/22/17 06:44 Plt Count 214 10^3/uL (120.0-450.0) 03/22/17 06:44 MPV 9.1 fl (7.0-11.0) 03/22/17 06:44 Gran % 45.8 % (50.0-68.0) L 03/22/17 06:44 Lymph % (Auto) 39.1 % (22.0-35.0) H 03/22/17 06:44 [place] % (Auto) 9.1 % (1.0-6.0) H 03/22/17 06:44 Eos % (Auto) 5.7 % (1.5-5.0) H 03/22/17 06:44 Baso % (Auto) 0.3 % (0.0-3.0) 03/22/17 06:44 Gran # 3.12 (1.4-6.5) 03/22/17 06:44 Lymph # 2.7 (1.2-3.4) 03/22/17 06:44 [place] # 0.6 (0.1-0.6) 03/22/17 06:44 Eos # 0.4 (0.0-0.7) 03/22/17 06:44 Baso # 0.02 K/mm3 (0.0-2.0) 03/22/17 06:44 PT 11.4 SECONDS (9.4-12.5) 03/17/17 23:30 INR 1.04 (0.93-1.08) 03/17/17 23:30 APTT 29.1 Seconds (25.1-36.5) 03/17/17 23:30 pCO2 54 mm/Hg (35-45) H 03/18/17 00:47 pO2 255.0 mm/Hg (80-100) H 03/18/17 00:47 HCO3 27.8 mmol/L (21-28) 03/18/17 00:47 ABG pH 7.32 (7.35-7.45) L 03/18/17 00:47 ABG Total CO2 29.5 mmol.L (22-28) H 03/18/17 00:47 ABG O2 Saturation 100.1 % (95-98) H 03/18/17 00:47 ABG O2 Content 16.4 ML/dl (15-23) 03/18/17 00:47 ABG Base Excess 0.9 mmol/L (-2.0-3.0) 03/18/17 00:47 ABG Hemoglobin 11.7 g/dL (11.7-17.4) 03/18/17 00:47 ABG Carboxyhemoglobin 3.1 % (0.5-1.5) H 03/18/17 00:47 POC ABG HHb (Measured) -0.1 % (0-5) L 03/18/17 00:47 ABG Methemoglobin 1.1 % (0.0-3.0) 03/18/17 00:47 ABG O2 Capacity 16.4 mL/dl (16-24) 03/18/17 00:47 VBG pH 7.34 (7.32-7.43) 03/17/17 23:55 VBG pCO2 51.0 (40-60) 03/17/17 23:55 VBG HCO3 27.5 mmol/l (21-28) 03/17/17 23:55 VBG Total CO2 29.1 mmol.L (22-28) H 03/17/17 23:55 VBG O2 Sat (Calc) 99.6 % (40-65) H 03/17/17 23:55 VBG Base Excess 0.9 mmol/L (0.0-2.0) 03/17/17 23:55 VBG Potassium 3.1 mmol/L (3.6-5.2) L 03/17/17 23:55 Hgb O2 Saturation 95.8 % (95.0-98.0) 03/18/17 00:47 Sodium 141.0 mmol/L (132-148) 03/17/17 23:55 Chloride 112.0 mmol/L (98-107) H 03/17/17 23:55 Glucose 92 mg/dl (75-110) 03/17/17 23:55 Lactate 0.7 mmol/L (0.7-2.1) 03/17/17 23:55 FiO2 32.0 % 03/18/17 00:47 Sodium 138 mmol/L (132-148) 03/22/17 06:44 Potassium 4.2 mmol/L (3.6-5.0) 03/22/17 06:44 Chloride 101 mmol/L (95-110) 03/22/17 06:44 Carbon Dioxide 31 mmol/L (21-33) 03/22/17 06:44 Anion Gap 10 (10-20) 03/22/17 06:44 BUN 12 mg/dL (7-21) 03/22/17 06:44 Creatinine 0.5 mg/dL (0.8-1.5) L 03/22/17 06:44 Est GFR ( Amer) > 60 03/22/17 06:44 Est GFR (Non-Af Amer) > 60 03/22/17 06:44 Random Glucose 86 mg/dL (70-110) 03/22/17 06:44 Calcium 9.4 mg/dL (8.4-10.5) 03/22/17 06:44 Phosphorus 4.3 mg/dL (2.5-4.5) 03/22/17 06:44 Magnesium 1.8 mg/dL (1.7-2.2) 03/22/17 06:44 Total Bilirubin 0.3 mg/dL (0.2-1.3) 03/22/17 06:44 AST 24 U/L (17-59) 03/22/17 06:44 ALT 29 U/L (7-56) 03/22/17 06:44 Alkaline Phosphatase 47 U/L (38-126) 03/22/17 06:44 Lactate Dehydrogenase 427 U/L (333-699) 03/17/17 23:30 Total Creatine Kinase 540 U/L (35-230) H 03/17/17 23:30 CK-MB (CK-2) 3.3 ng/mL (0.0-3.6) 03/17/17 23:30 CK-MB (CK-2) % Cancelled 03/17/17 23:30 Troponin I < 0.01 ng/mL 03/18/17 14:00 Total Protein 6.5 g/dL (5.8-8.3) 03/22/17 06:44 Albumin 4.1 g/dL (3.0-4.8) 03/22/17 06:44 Globulin 2.4 gm/dL 03/22/17 06:44 Albumin/Globulin Ratio 1.7 (1.1-1.8) 03/22/17 06:44 Venous Blood Potassium 3.1 mmol/L (3.6-5.2) L 03/17/17 23:55 Urine Color Light yellow (YELLOW) 03/19/17 12:47 Urine Appearance Clear (CLEAR) 03/19/17 12:47 Urine pH 7.0 (4.7-8.0) 03/19/17 12:47 Ur Specific [place] 1.015 (1.005-1.035) 03/19/17 12:47 Urine Protein Negative mg/dL (<30 mg/dL) 03/19/17 12:47 Urine Glucose (UA) Negative mg/dL (NEGATIVE) 03/19/17 12:47 Urine Ketones Negative mg/dL (NEGATIVE) 03/19/17 12:47 Urine Blood Negative (NEGATIVE) 03/19/17 12:47 Urine Nitrate Negative (NEGATIVE) 03/19/17 12:47 Urine Bilirubin Negative (NEGATIVE) 03/19/17 12:47 Urine Urobilinogen 0.2 E.U./dL (<1 E.U./dL) 03/19/17 12:47 Ur Leukocyte Esterase Negative Xena/uL (NEGATIVE) 03/19/17 12:47 Salicylates < 1 mg/dL (2.0-20.0) L 03/17/17 23:30 Urine Opiates Screen Negative (NEGATIVE) 03/18/17 00:05 Urine Methadone Screen Negative (NEGATIVE) 03/18/17 00:05 Acetaminophen < 10.0 ug/ml (10.0-20.0) L 03/17/17 23:30 Ur Barbiturates Screen Positive (NEGATIVE) H 03/18/17 00:05 Ur Phencyclidine Scrn Negative (NEGATIVE) 03/18/17 00:05 Ur Amphetamines Screen Negative (NEGATIVE) 03/18/17 00:05 U Benzodiazepines Scrn Positive (NEGATIVE) H 03/18/17 00:05 U Oth Cocaine Metabols Negative (NEGATIVE) 03/18/17 00:05 U Cannabinoids Screen Positive (NEGATIVE) H 03/18/17 00:05 Alcohol, Quantitative < 10 mg/dL (0-10) 03/17/17 23:30 Hepatitis A IgM Ab Negative (NEGATIVE) 03/20/17 07:30 Hep Bs Antigen Negative (NEGATIVE) 03/20/17 07:30 Hep B Core IgM Ab Negative (NEGATIVE) 03/20/17 07:30 Hepatitis C Antibody Negative (NEGATIVE) 03/20/17 07:30 HIV 1&2 Antibody Screen Negative (NEGATIVE) 03/20/17 07:30 Attending/Attestation - Attestation I have personally seen and examined this patient.: Yes I have fully participated in the care of the patient.: Yes I have reviewed all pertinent clinical information, including history, physical exam and plan: Yes Notes (Text): I have seen and examined the patient with the resident. Agree with the above note with the following additions/ exceptions: Briefly this is 41 year old male (He likes to be called as GLENDA) with history of HTN, seizures, asthma, hyperlipidemia, GERD, migraine headache, bipolar disorder, schizoaffective, and gender identity disorder who presented to the ED with AMS most likely due to polypharmacy. Patient denies any complaints at this time and wants to go home. Discussed with Dr Sierra in detail. [facility] screen[facility] refused to accept the patient twice for involuntary commitment. Patient denies any suicidal ideation at this time however he remains very secretive and is not willing to open up to have discussion. He left AMA in the presence of his Annia. Upon discharge the patient will follow-up with PMD . Patient needs close follow up with psychiatrist Angel Adkins. Dr Iliana Lopez
--- NOTE | 2017-03-22 21:05 | PN ---
SUBJECTIVE: The patient was screened by [facility] yesterday again, was found to be not committable again. The patient was seen at this afternoon. The patient said that he does not want to stay in the hospital. He wants to leave the hospital. The patient contracted for safety. The patient said that he does not have any thoughts of harming himself or others. Denied intents or plan. The patient's is next to the patient. The patient does not appear to be psychotic or disorganized. Vital signs are stable. Labs reviewed. Discussed with the nursing staff. The patient does not exhibit any aggressive or agitated behavior. The patient is polite. There are no signs of psychosis. MENTAL STATUS EXAM: The patient presented to be too masculine dressed like female. The patient has very bright makeup, intermittent eye contact. Speech was normal rate, tone, quality, and quantity. Mood described as "I feel better, I want to go home." Thought process seems to be goal directed. Thought content: The patient denied visual, auditory, or tactile hallucinations. Denied paranoid ideation. The patient denied thoughts of harming himself or others. Denied intent or plan. Insight and judgment are limited. Impulses are well controlled. IMPRESSION: As per history of bipolar disorder, gender identity disorder, status post overdose on medications. PLAN: The patient was not accepted by [facility]. This scientific writer has no other options than to let the patient go against medical advice. The patient does not want to stay in the hospital, does not want to sign consent for treatment. The patient has followup appointment at [facility] with nurse practitioner, Angel, in April. The patient was advised to stay safe in case of suicidal ideation and case of worsening of condition call 911 or come to the nearest emergency room. The patient verbalized understanding. There is no psychosis. There is no agitation. The patient seemed to not pose imminent danger to self or others. This scientific writer will sign off. Discussed with . Thank you very much for letting me participate in care of your patient. Mariela Garcia MD
== END 2017-03-22 15:30 | disposition left against medical advice (07) | DRG 449 ==
LOC: ED 22:27 → ERH 03-18 00:29 → CCU 03-18 02:09 → 5RNO 03-19 11:27
PROVIDERS: ADMIT Hospitalist; ATTEND Hospitalist
DX: T43.591A Poisoning by other antipsychotics and neuroleptics, accidental (unintentional), initial encounter (principal); F25.9 Schizoaffective disorder, unspecified; I10 Essential (primary) hypertension; G40.909 Epilepsy, unspecified, not intractable, without status epilepticus; N40.0 Benign prostatic hyperplasia without lower urinary tract symptoms; K21.9 Gastro-esophageal reflux disease without esophagitis; J45.909 Unspecified asthma, uncomplicated; E78.5 Hyperlipidemia, unspecified; F31.9 Bipolar disorder, unspecified; F64.9 Gender identity disorder, unspecified; F41.9 Anxiety disorder, unspecified; F60.3 Borderline personality disorder; R30.0 Dysuria; G43.909 Migraine, unspecified, not intractable, without status migrainosus; Z79.82 Long term (current) use of aspirin